=== PATIENT | male | born 1955 | race Caucasian/White ===

== ENCOUNTER 2017-11-09 09:23 | Inpatient (IN) | payer OTHER ==
[2017-11-09 11:03] VITALS: BMI 23.4
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
[2017-11-09] MEDS ORDERED: P-EPHED 60MG/TRIPROLIDI 2.5MG TABLET PO PRN (11:32)
[2017-11-09] MEDS ORDERED: MAG HYDROX/AL HYDROX/SIMETH 30 ML UNIT-DOSE CUP PO PRN (11:32)
[2017-11-09] MEDS ORDERED: chlordiazePOXIDE HCL 25 MG CAPSULE PO PRN (11:32)
[2017-11-09] MEDS ORDERED: MAGNESIUM CITRATE 300 ML BOTTLE PO PRN (11:32)
[2017-11-09] MEDS ORDERED: LOPERAMIDE HCL 2 MG CAPSULE PO PRN (11:32)
[2017-11-09] MEDS ORDERED: MENTHOL/PHENOL 1 EACH UD MM PRN (11:32)
[2017-11-09] MEDS ORDERED: guaiFENesin/D-METHORPHAN HB 10 ML UNIT-DOSE CUPS PO PRN (11:32)
[2017-11-09] MEDS ORDERED: IBUPROFEN 400 MG TABLET (FP) PO PRN (11:32)
[2017-11-09] MEDS ORDERED: MAGNESIUM HYDROX 2400MG/30ML ORAL SUSPENSION 30 ML CUP PO PRN (11:32)
[2017-11-09] MEDS ORDERED: ACETAMINOPHEN 325 MG TABLET (FP) PO PRN (11:32)
[2017-11-09] MEDS ORDERED: cloNIDine HCL 0.1 MG TABLET PO ONE ×3 (11:36→23:47)
[2017-11-09] MEDS ORDERED: chlordiazePOXIDE HCL 25 MG CAPSULE PO ONE (12:09)
[2017-11-09] MEDS ORDERED: METHADONE HCL 10 MG TABLET (FOR DETOX USE ONLY) PO ONE ×2 (12:09→23:00)
[2017-11-09] MEDS: NICOTINE 21 MG/24 HOURS TOPICAL PATCH TD SCH (12:46)
[2017-11-09] MEDS: TRIAMTERENE AND HCTZ - 37.5 MG/25 MG CAPSULE PO SCH (13:44)
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
[2017-11-09] MEDS: hydrOXYzine PAMOATE 25 MG CAPSULE (FP) PO PRN ×2 (17:21→22:20)
[2017-11-09] MEDS: chlordiazePOXIDE HCL 25 MG CAPSULE PO SCH ×2 (17:21→22:18)
--- NOTE | 2017-11-09 17:41 | EKG ---
Test Reason : Blood Pressure : / mmHG Vent. Rate : 078 BPM Atrial Rate : 078 BPM P-R Int : 252 ms QRS Dur : 086 ms QT Int : 392 ms P-R-T Axes : 075 -16 059 degrees QTc Int : 446 ms SINUS RHYTHM WITH 1ST DEGREE A-V BLOCK OTHERWISE NORMAL ECG NO PREVIOUS ECGS AVAILABLE Confirmed by ELISA JENSEN MD ([id number]) on 11/09/2017 5:41:11 PM Referred By: Confirmed By:ELISA JENSEN MD
[2017-11-09 18:03] LABS: URINE APPEARANCE CLEAR; URINE BILIRUBIN NEGATIVE (NEGATIVE); URINE BLOOD NEGATIVE (NEGATIVE); URINE COLOR AMBER; URINE GLUCOSE (UA) NEGATIVE (NEGATIVE); URINE KETONE NEGATIVE (NEGATIVE); URINE LEUK ESTERASE NEGATIVE (NEGATIVE); URINE NITRITE NEGATIVE (NEGATIVE); URINE PROTEIN NEGATIVE (NEGATIVE); URINE UROBILINOGEN 4.0 E.U/dl mg/dL (0.2-1.0)
[2017-11-09] MEDS: cloNIDine HCL 0.1 MG TABLET PO SCH (21:13)
[2017-11-09] MEDS: THIAMINE HCL 100 MG TABLET (FP) PO SCH (22:18)
[2017-11-09] MEDS: traZODone HCL 50 MG TABLET (FP) PO SCH (22:18)
[2017-11-10] MEDS: chlordiazePOXIDE HCL 25 MG CAPSULE PO SCH ×4 (05:21→22:04)
--- NOTE | 2017-11-10 09:06 | EKG ---
Test Reason : Blood Pressure : / mmHG Vent. Rate : 064 BPM Atrial Rate : 064 BPM P-R Int : 000 ms QRS Dur : 092 ms QT Int : 478 ms P-R-T Axes : 226 164 126 degrees QTc Int : 493 ms LIMB LEAD REVERSAL LATERAL INFARCT , AGE UNDETERMINED ABNORMAL ECG WHEN COMPARED WITH ECG OF 09-NOV-2017 13:25, ECTOPIC ATRIAL RHYTHM HAS REPLACED SINUS RHYTHM QUESTIONABLE CHANGE IN QRS AXIS Confirmed by Jose Mcdonnell ([id number]) on 11/10/2017 9:06:15 AM Referred By: Confirmed By:Jose Mcdonnell
[2017-11-10] MEDS ORDERED: METHADONE HCL 10 MG TABLET (FOR DETOX USE ONLY) PO SCH (10:00)
[2017-11-10] MEDS: PRENATAL VITAMINS W/ FOLIC ACID TABLET (FP) PO SCH (10:10)
[2017-11-10] MEDS: cloNIDine HCL 0.1 MG TABLET PO SCH ×2 (10:10→22:04)
[2017-11-10] MEDS: TRIAMTERENE AND HCTZ - 37.5 MG/25 MG CAPSULE PO SCH (10:10)
[2017-11-10] MEDS: NICOTINE 21 MG/24 HOURS TOPICAL PATCH TD SCH (10:11)
[2017-11-10] MEDS ORDERED: ONDANSETRON *ODT* 4 MG TABLET SL PRN (10:30)
[2017-11-10 10:32] LABS: HEMOGLOBIN 13.3 GM/dL (11.7-16.9); MCH 30.8 pg (25.7-33.7); MCHC 31.7 g/dl (32.0-35.9); MEAN CELL VOLUME 97.3 fl (80-96); MEAN PLT VOLUME 10.2 fl (7.5-11.1); PLATELET COUNT 156 K/MM3 (134-434); RBC 4.31 M/mm3 (4.00-5.60)
[2017-11-10 10:33] LABS: CHLORIDE 100 mmol/L (98-107); POTASSIUM 3.9 mmol/L (3.5-5.1); SODIUM 137 mmol/L (136-145)
--- NOTE | 2017-11-10 10:33 | PN ---
S CIWA - CIWA Score Nausea/Vomitin-Int. Nausea w/Dry Heave Muscle Tremors: 3 Anxiety: 4-Mod. Anxious/Guarded Agitation: 2 Paroxysmal Sweats: 1-Minimal Palms Moist Orientation: 0-Oriented Tacttile Disturbances: 3-Moderate Itch/Numb/Burn Auditory Disturbances: 0-None Visual Disturbances: 0-None Headache: 0-None Present CIWA-Ar Total Score: 17 BHS COWS - Scale Resting Pulse: 0= ID 80 or Below Sweatin= Chills/Flushing Restless Observation: 3= Extraneous Movement Pupil Size: 2= Moderately Dilated Bone or Joint Aches: 4=Acute Joint/Muscle Pain Runny Nose/ Eye Tearin= None GI Upset > 30mins: 0= None Tremor Observation of Outstretched Hands: 2= Slight Tremor Visible Yawning Observation: 1= 1-2x During Session Anxiety or Irritability: 1=Feels Anxious/Irritable Goose Flesh Skin: 0=Smooth Skin COWS Score: 14 S Progress Note (SOAP) Subjective: ANXIETY,CHILLS/SWEATS,NAUSEA TREMORS,FATIGUE, Objective: 11/10/17 10:32 Vital Signs Temperature 96.5 F L 11/10/17 09:15 Pulse Rate 66 11/10/17 09:15 Respiratory Rate 18 11/10/17 09:15 Blood Pressure 164/93 11/10/17 09:15 O2 Sat by Pulse Oximetry (%) Laboratory Last Values Urine Color Yasemin 11/09/17 16:00 Urine Appearance Clear 11/09/17 16:00 Urine pH 7.0 (5.0-8.0) D 11/09/17 16:00 Ur Specific [place] 1.025 (1.001-1.035) 11/09/17 16:00 Urine Protein Negative (NEGATIVE) 11/09/17 16:00 Urine Glucose (UA) Negative (NEGATIVE) 11/09/17 16:00 Urine Ketones Negative (NEGATIVE) 11/09/17 16:00 Urine Blood Negative (NEGATIVE) 11/09/17 16:00 Urine Nitrite Negative (NEGATIVE) 11/09/17 16:00 Urine Bilirubin Negative (NEGATIVE) 11/09/17 16:00 Urine Urobilinogen 4.0 e.u/dl mg/dL (0.2-1.0) 11/09/17 16:00 Ur Leukocyte Esterase Negative (NEGATIVE) 11/09/17 16:00 HIV 1&2 Antibody Screen Negative 11/09/17 12:00 HIV P24 Antigen Negative 11/09/17 12:00 OTHER LABS PENDING Assessment: 11/10/17 10:33 WITHDRAWAL SX Plan: CONTINUE DETOX
[2017-11-10] MEDS ORDERED: ALBUTEROL SO4 18 GM HFA INHALER IH PRN (10:43)
[2017-11-10 10:52] LABS: ALBUMIN 3.1 g/dl (3.4-5.0); ALK PHOS 188 U/L (45-117); ANION GAP 8 (8-16); BILIRUBIN,TOTAL 1.5 mg/dL (0.2-1.0); BLOOD UREA NITROGEN 15 mg/dL (7-18); CALCIUM 8.6 mg/dL (8.5-10.1); CO2 29 mmol/L (21-32); CREATININE 0.9 mg/dL (0.7-1.3); GLUCOSE,RANDOM 134 mg/dL (74-106); SGOT/AST 87 U/L (15-37); SGPT/ALT 25 U/L (12-78); TOT PROT 8.3 g/dl (6.4-8.2)
[2017-11-10] MEDS ORDERED: chlordiazePOXIDE HCL 25 MG CAPSULE PO ONE (14:30)
[2017-11-10] MEDS: THIAMINE HCL 100 MG TABLET (FP) PO SCH (22:04)
[2017-11-10] MEDS: traZODone HCL 50 MG TABLET (FP) PO SCH (22:04)
[2017-11-11] MEDS: chlordiazePOXIDE HCL 25 MG CAPSULE PO SCH ×2 (05:53→10:36)
[2017-11-11] MEDS: METHADONE HCL 5 MG TABLET (FOR DETOX USE ONLY) PO SCH (10:34)
[2017-11-11] MEDS: cloNIDine HCL 0.1 MG TABLET PO SCH ×2 (10:34→21:58)
[2017-11-11] MEDS: TRIAMTERENE AND HCTZ - 37.5 MG/25 MG CAPSULE PO SCH (10:34)
[2017-11-11] MEDS: PRENATAL VITAMINS W/ FOLIC ACID TABLET (FP) PO SCH (10:36)
[2017-11-11] MEDS: NICOTINE 21 MG/24 HOURS TOPICAL PATCH TD SCH (10:36)
--- NOTE | 2017-11-11 11:09 | PN ---
S CIWA - CIWA Score Nausea/Vomitin-No Nausea/No Vomiting Muscle Tremors: 4-Moderate,w/Arms Extend Anxiety: 4-Mod. Anxious/Guarded Agitation: 4-Moderately Restless Paroxysmal Sweats: 1-Minimal Palms Moist Orientation: 0-Oriented Tacttile Disturbances: 3-Moderate Itch/Numb/Burn Auditory Disturbances: 0-None Visual Disturbances: 0-None Headache: 0-None Present CIWA-Ar Total Score: 16 BHS COWS - Scale Resting Pulse: 0= [place] 80 or Below Sweatin= Chills/Flushing Restless Observation: 3= Extraneous Movement Pupil Size: 2= Moderately Dilated Bone or Joint Aches: 4=Acute Joint/Muscle Pain Runny Nose/ Eye Tearin= Nasal Congestion GI Upset > 30mins: 1= Stomach Cramp Tremor Observation of Outstretched Hands: 1= Tremor [place], Not Seen Yawning Observation: 2= >3x During Session Anxiety or Irritability: 2=Irritable/Anxious Goose Flesh Skin: 0=Smooth Skin COWS Score: 17 [facility] Progress Note (SOAP) Subjective: ANXIETY,TREMORS,SWEATS,MUSCLE ACHES/ LEG CRAMPS, FATIGUE Objective: 11/11/17 11:08 Vital Signs Temperature 97.2 F L 11/11/17 09:05 Pulse Rate 77 11/11/17 09:05 Respiratory Rate 18 11/11/17 09:05 Blood Pressure 132/83 11/11/17 09:05 O2 Sat by Pulse Oximetry (%) Laboratory Last Values WBC 5.0 K/mm3 (4.0-10.0) 11/10/17 05:50 RBC 4.31 M/mm3 (4.00-5.60) 11/10/17 05:50 Hgb 13.3 GM/dL (11.7-16.9) 11/10/17 05:50 Hct 42.0 % (35.4-49) 11/10/17 05:50 MCV 97.3 fl (80-96) H 11/10/17 05:50 MCH 30.8 pg (25.7-33.7) 11/10/17 05:50 MCHC 31.7 g/dl (32.0-35.9) L 11/10/17 05:50 RDW 14.0 % (11.9-15.9) 11/10/17 05:50 Plt Count 156 K/MM3 (134-434) D 11/10/17 05:50 MPV 10.2 fl (7.5-11.1) D 11/10/17 05:50 Sodium 137 mmol/L (136-145) 11/10/17 05:50 Potassium 3.9 mmol/L (3.5-5.1) 11/10/17 05:50 Chloride 100 mmol/L (98-107) 11/10/17 05:50 Carbon Dioxide 29 mmol/L (21-32) 11/10/17 05:50 Anion Gap 8 (8-16) 11/10/17 05:50 BUN 15 mg/dL (7-18) D 11/10/17 05:50 Creatinine 0.9 mg/dL (0.7-1.3) 11/10/17 05:50 Creat Clearance w eGFR > 60 (>60) 11/10/17 05:50 Random Glucose 134 mg/dL (74-106) H 11/10/17 05:50 Calcium 8.6 mg/dL (8.5-10.1) 11/10/17 05:50 Total Bilirubin 1.5 mg/dL (0.2-1.0) H D 11/10/17 05:50 AST 87 U/L (15-37) H 11/10/17 05:50 ALT 25 U/L (12-78) 11/10/17 05:50 Alkaline Phosphatase 188 U/L (45-117) H D 11/10/17 05:50 Total Protein 8.3 g/dl (6.4-8.2) H 11/10/17 05:50 Albumin 3.1 g/dl (3.4-5.0) L D 11/10/17 05:50 Urine Color Yasemin 11/09/17 16:00 Urine Appearance Clear 11/09/17 16:00 Urine pH 7.0 (5.0-8.0) D 11/09/17 16:00 Ur Specific [place] 1.025 (1.001-1.035) 11/09/17 16:00 Urine Protein Negative (NEGATIVE) 11/09/17 16:00 Urine Glucose (UA) Negative (NEGATIVE) 11/09/17 16:00 Urine Ketones Negative (NEGATIVE) 11/09/17 16:00 Urine Blood Negative (NEGATIVE) 11/09/17 16:00 Urine Nitrite Negative (NEGATIVE) 11/09/17 16:00 Urine Bilirubin Negative (NEGATIVE) 11/09/17 16:00 Urine Urobilinogen 4.0 e.u/dl mg/dL (0.2-1.0) 11/09/17 16:00 Ur Leukocyte Esterase Negative (NEGATIVE) 11/09/17 16:00 RPR Titer Nonreactive (NONREACTIVE) 11/10/17 05:50 HIV 1&2 Antibody Screen Negative 11/09/17 12:00 HIV P24 Antigen Negative 11/09/17 12:00 Assessment: 11/11/17 11:08 WITHDRAWAL SX Plan: CONTINUE DETOX FLEXERIL 10 MG PO TID PRN
[2017-11-11] MEDS: chlordiazePOXIDE 5 MG CAPSULE PO SCH ×2 (17:34→22:43)
[2017-11-11] MEDS: THIAMINE HCL 100 MG TABLET (FP) PO SCH (21:58)
[2017-11-11] MEDS: traZODone HCL 50 MG TABLET (FP) PO SCH (22:43)
[2017-11-12] MEDS: chlordiazePOXIDE 5 MG CAPSULE PO SCH ×2 (05:14→11:28)
[2017-11-12] MEDS: cloNIDine HCL 0.1 MG TABLET PO SCH (10:43)
[2017-11-12] MEDS: PRENATAL VITAMINS W/ FOLIC ACID TABLET (FP) PO SCH (10:43)
[2017-11-12] MEDS: TRIAMTERENE AND HCTZ - 37.5 MG/25 MG CAPSULE PO SCH (10:43)
[2017-11-12] MEDS: METHADONE HCL 5 MG TABLET (FOR DETOX USE ONLY) PO SCH (10:43)
[2017-11-12] MEDS: NICOTINE 21 MG/24 HOURS TOPICAL PATCH TD SCH (10:44)
[2017-11-12] MEDS ORDERED: cloNIDine HCL 0.1 MG TABLET PO PRN (11:32)
--- NOTE | 2017-11-12 11:32 | PN ---
S Progress Note (SOAP) Subjective: PT APPEARED LETHARGIC WITH UNSTEADY GAIT. SLIGHT ANXIETY. DECREASED APPETITE. Objective: 11/12/17 11:30 Vital Signs Temperature 97.2 F L 11/12/17 09:27 Pulse Rate 78 11/12/17 09:27 Respiratory Rate 20 11/12/17 09:27 Blood Pressure 142/91 11/12/17 09:27 O2 Sat by Pulse Oximetry (%) Laboratory Last Values WBC 5.0 K/mm3 (4.0-10.0) 11/10/17 05:50 RBC 4.31 M/mm3 (4.00-5.60) 11/10/17 05:50 Hgb 13.3 GM/dL (11.7-16.9) 11/10/17 05:50 Hct 42.0 % (35.4-49) 11/10/17 05:50 MCV 97.3 fl (80-96) H 11/10/17 05:50 MCH 30.8 pg (25.7-33.7) 11/10/17 05:50 MCHC 31.7 g/dl (32.0-35.9) L 11/10/17 05:50 RDW 14.0 % (11.9-15.9) 11/10/17 05:50 Plt Count 156 K/MM3 (134-434) D 11/10/17 05:50 MPV 10.2 fl (7.5-11.1) D 11/10/17 05:50 Sodium 137 mmol/L (136-145) 11/10/17 05:50 Potassium 3.9 mmol/L (3.5-5.1) 11/10/17 05:50 Chloride 100 mmol/L (98-107) 11/10/17 05:50 Carbon Dioxide 29 mmol/L (21-32) 11/10/17 05:50 Anion Gap 8 (8-16) 11/10/17 05:50 BUN 15 mg/dL (7-18) D 11/10/17 05:50 Creatinine 0.9 mg/dL (0.7-1.3) 11/10/17 05:50 Creat Clearance w eGFR > 60 (>60) 11/10/17 05:50 POC Glucometer 112 UNITS (80-120) 11/12/17 06:12 Random Glucose 134 mg/dL (74-106) H 11/10/17 05:50 Calcium 8.6 mg/dL (8.5-10.1) 11/10/17 05:50 Total Bilirubin 1.5 mg/dL (0.2-1.0) H D 11/10/17 05:50 AST 87 U/L (15-37) H 11/10/17 05:50 ALT 25 U/L (12-78) 11/10/17 05:50 Alkaline Phosphatase 188 U/L (45-117) H D 11/10/17 05:50 Total Protein 8.3 g/dl (6.4-8.2) H 11/10/17 05:50 Albumin 3.1 g/dl (3.4-5.0) L D 11/10/17 05:50 Urine Color Yasemin 11/09/17 16:00 Urine Appearance Clear 11/09/17 16:00 Urine pH 7.0 (5.0-8.0) D 11/09/17 16:00 Ur Specific [place] 1.025 (1.001-1.035) 11/09/17 16:00 Urine Protein Negative (NEGATIVE) 11/09/17 16:00 Urine Glucose (UA) Negative (NEGATIVE) 11/09/17 16:00 Urine Ketones Negative (NEGATIVE) 11/09/17 16:00 Urine Blood Negative (NEGATIVE) 11/09/17 16:00 Urine Nitrite Negative (NEGATIVE) 11/09/17 16:00 Urine Bilirubin Negative (NEGATIVE) 11/09/17 16:00 Urine Urobilinogen 4.0 e.u/dl mg/dL (0.2-1.0) 11/09/17 16:00 Ur Leukocyte Esterase Negative (NEGATIVE) 11/09/17 16:00 RPR Titer Nonreactive (NONREACTIVE) 11/10/17 05:50 HIV 1&2 Antibody Screen Negative 11/09/17 12:00 HIV P24 Antigen Negative 11/09/17 12:00 Assessment: 11/12/17 11:30 WITHDRAWAL SX Plan: CONTINUE DETOX ASSIST PT NEEDED INCREASE PO FLUIDS MAINTAIN SAFETY
[2017-11-12] MEDS: chlordiazePOXIDE HCL 10 MG CAPSULE PO SCH ×2 (18:23→23:17)
[2017-11-12] MEDS: traZODone HCL 50 MG TABLET (FP) PO SCH (23:17)
[2017-11-12] MEDS: THIAMINE HCL 100 MG TABLET (FP) PO SCH (23:18)
[2017-11-13] MEDS: chlordiazePOXIDE HCL 10 MG CAPSULE PO SCH (06:30)
[2017-11-13] MEDS ORDERED: METHADONE HCL 10 MG TABLET (FOR DETOX USE ONLY) PO SCH (10:00)
--- NOTE | 2017-11-13 11:03 | PN ---
BHS Progress Note (SOAP) Subjective: PT APPEARS LETHARGIC, SLEEPING IN BED BUT AROUSABLE. Objective: 11/13/17 11:06 Vital Signs Temperature 97.9 F 11/13/17 10:07 Pulse Rate 63 11/13/17 10:07 Respiratory Rate 18 11/13/17 10:07 Blood Pressure 129/76 11/13/17 10:07 O2 Sat by Pulse Oximetry (%) Laboratory Last Values WBC 5.0 K/mm3 (4.0-10.0) 11/10/17 05:50 RBC 4.31 M/mm3 (4.00-5.60) 11/10/17 05:50 Hgb 13.3 GM/dL (11.7-16.9) 11/10/17 05:50 Hct 42.0 % (35.4-49) 11/10/17 05:50 MCV 97.3 fl (80-96) H 11/10/17 05:50 MCH 30.8 pg (25.7-33.7) 11/10/17 05:50 MCHC 31.7 g/dl (32.0-35.9) L 11/10/17 05:50 RDW 14.0 % (11.9-15.9) 11/10/17 05:50 Plt Count 156 K/MM3 (134-434) D 11/10/17 05:50 MPV 10.2 fl (7.5-11.1) D 11/10/17 05:50 Sodium 137 mmol/L (136-145) 11/10/17 05:50 Potassium 3.9 mmol/L (3.5-5.1) 11/10/17 05:50 Chloride 100 mmol/L (98-107) 11/10/17 05:50 Carbon Dioxide 29 mmol/L (21-32) 11/10/17 05:50 Anion Gap 8 (8-16) 11/10/17 05:50 BUN 15 mg/dL (7-18) D 11/10/17 05:50 Creatinine 0.9 mg/dL (0.7-1.3) 11/10/17 05:50 Creat Clearance w eGFR > 60 (>60) 11/10/17 05:50 POC Glucometer 75 UNITS (80-120) 11/13/17 06:55 Random Glucose 134 mg/dL (74-106) H 11/10/17 05:50 Calcium 8.6 mg/dL (8.5-10.1) 11/10/17 05:50 Total Bilirubin 1.5 mg/dL (0.2-1.0) H D 11/10/17 05:50 AST 87 U/L (15-37) H 11/10/17 05:50 ALT 25 U/L (12-78) 11/10/17 05:50 Alkaline Phosphatase 188 U/L (45-117) H D 11/10/17 05:50 Total Protein 8.3 g/dl (6.4-8.2) H 11/10/17 05:50 Albumin 3.1 g/dl (3.4-5.0) L D 11/10/17 05:50 Urine Color Yasemin 11/09/17 16:00 Urine Appearance Clear 11/09/17 16:00 Urine pH 7.0 (5.0-8.0) D 11/09/17 16:00 Ur Specific [place] 1.025 (1.001-1.035) 11/09/17 16:00 Urine Protein Negative (NEGATIVE) 11/09/17 16:00 Urine Glucose (UA) Negative (NEGATIVE) 11/09/17 16:00 Urine Ketones Negative (NEGATIVE) 11/09/17 16:00 Urine Blood Negative (NEGATIVE) 11/09/17 16:00 Urine Nitrite Negative (NEGATIVE) 11/09/17 16:00 Urine Bilirubin Negative (NEGATIVE) 11/09/17 16:00 Urine Urobilinogen 4.0 e.u/dl mg/dL (0.2-1.0) 11/09/17 16:00 Ur Leukocyte Esterase Negative (NEGATIVE) 11/09/17 16:00 RPR Titer Nonreactive (NONREACTIVE) 11/10/17 05:50 HIV 1&2 Antibody Screen Negative 11/09/17 12:00 HIV P24 Antigen Negative 11/09/17 12:00 Assessment: 11/13/17 11:06 WITHDRAWAL SX Plan: CONTINUE DETOX HOLD METHADONE 10 MG D/C LIBRIUM INCREASE PO FLUIDS. AMMONIA LEVEL NOW PSYCH F/U RE:TRAZODONE HS
[2017-11-13] MEDS: TRIAMTERENE AND HCTZ - 37.5 MG/25 MG CAPSULE PO SCH (11:21)
[2017-11-13] MEDS: amLODIPine BESYLATE 10 MG TABLET (FP) PO SCH (11:22)
[2017-11-13] MEDS: NICOTINE 21 MG/24 HOURS TOPICAL PATCH TD SCH (11:22)
[2017-11-13] MEDS: PRENATAL VITAMINS W/ FOLIC ACID TABLET (FP) PO SCH (11:22)
--- NOTE | 2017-11-13 17:38 | PN ---
Psychiatric Progress Note Vital Signs: Vital Signs Period Temp Pulse Resp BP Sys/Soler Pulse Ox Last 24 Hr 96.5 F-97.9 F 62-72 16-18 114-151/70-87 Date of Session: 11/13/17 Chief Complaint:: " I feel sleepy." HPI: Day 5 of detoxification treatment for alcohol and opioid dependence.Patient is sedated,slow and bedridden. ROS: Drowzy,slow,withdrawn and unsteady.In bed all day long. Current Medications: Active Medications Generic Name Dose Route Start Last Admin Trade Name Freq PRN Reason Stop Dose Admin Acetaminophen 650 mg 11/09/17 11:32 Tylenol - PO Q4H PRN FEVER Al Hydroxide/Mg Hydroxide 30 ml 11/09/17 11:32 Mylanta Oral Suspension - PO Q6H PRN DYSPEPSIA Albuterol Sulfate 2 puff 11/10/17 10:43 Ventolin Hfa Inhaler - IH Q4H PRN SHORT OF BREATH/WHEEZING Amlodipine Besylate 10 mg 11/13/17 10:00 11/13/17 11:22 Norvasc - PO 10 mg DAILY MONTSE Administration Eucalyptus/Menthol/Phenol/Sorbitol 1 each 11/09/17 11:32 Cepastat Lozenge - MM Q4H PRN SORE THROAT Guaifenesin 10 ml 11/09/17 11:32 Robitussin Dm - PO Q6H PRN COUGH Hydroxyzine Pamoate 25 mg 11/09/17 11:32 11/09/17 22:20 Vistaril - PO 25 mg Q4H PRN Administration AGITATION Ibuprofen 400 mg 11/09/17 11:32 11/11/17 21:58 Motrin - PO 400 mg Q6H PRN Administration PAIN LEVEL 4-6 Loperamide HCl 4 mg 11/09/17 11:32 Imodium - PO Q6H PRN DIARRHEA Magnesium Citrate 300 ml 11/09/17 11:32 Citroma - PO Q48H PRN CONSTIPATION Magnesium Hydroxide 30 ml 11/09/17 11:32 Milk Of Magnesia - PO DAILY PRN CONSTIPATION Methadone HCl 5 mg 11/14/17 06:00 Dolophine - PO 11/14/17 06:01 DAILY@0600 MONTSE Nicotine 21 mg 11/09/17 12:15 11/13/17 11:22 Nicoderm Patch - TD Not Given DAILY MONTSE Ondansetron HCl 4 mg 11/10/17 10:30 Zofran Odt - SL Q6H PRN NAUSEA AND/OR VOMITING Multivit/Folic Acid/Iron 1 tab 11/10/17 10:00 11/13/17 11:22 Vitamins (Sjr) - PO 1 tab DAILY MONTSE Administration Pseudoephedrine/Triprolidine 1 combo 11/09/17 11:32 Actifed - PO TID PRN NASAL CONGESTION Thiamine HCl 100 mg 11/09/17 22:00 11/12/17 23:18 Vitamin B1 - PO 100 mg HS MONTSE Administration Triamterene/HCTZ 1 cap 11/09/17 12:11 11/13/17 11:21 Dyazide 25/37.5mg PO 1 cap DAILY MONTSE Administration Medication(s) Change(s): Trazodone 50 mg/hs is discontinued.Refer to medical FINANCE ADVISOR' s note for additional details. Current Side Effect: Yes (sedation.) Lab tests ordered: Yes (ammonia level) Lab tests reviewed: Yes (elevated ammonia level = 161) Provider note:: Asked to evaluate this patient for alteration of mental status.Case presented by medical FINANCE ADVISOR Gerry.Chart reviewed.Multidisciplinary progress notes are appreciated.Met with patient at bedside.Mr Mendoza is awake at time of this examination.Able to maintain conversation.Answers simple questions.Speech is slow,hesitant but coherent and goal-directed.The patient is oriented X 3 spheres.He reports feeling weak, drowzy and unsteady.Able,however,to get out of bed unassisted and walk to the bathroom.He is also observed,by this video games storywriter,eating his diner independently.Capable of executing simple tasks on command.Aware of personal hygiene as evidenced by wearing clean hospital attire.Behaves appropriately with staff.Patient remains withdrawn and beridden.No complaint of pain, headaches or muscular rigidity.No problem with urination or bowel movements.Patient denies hallucinations.No delusions elicited.Aware of his surroundings.Mr Mendoza denies falls.Patient is placed under falls precautions + close observation (frequent rounds).Medical follow up (hyperammonemia).Stable vitals at this time : BP = 104/75 P = 73 R = 20 T = 96.2 .Discussed with JANEL Rodrigez.Follow up by medical attending,Dr Blanco : pending.See nurse's notes. Total face to face time:: 35 Mental Status Exam - Mental Status Exam Alert and Oriented to: Time, Place, Person Cognitive Function: Grossly Intact Patient Appearance: Well Groomed Mood: Withdrawn Affect: Constricted Patient Behavior: Sedated (markedly sedated) Speech Pattern: Delayed, Slurred (slow but coherent and relevant) Voice Loudness: Moderately Soft/Quiet Thought Process: Goal Oriented Thought Disorder: Not Present Hallucinations: Denies Suicidal Ideation: Denies Homicidal Ideation: Denies Insight/Judgement: Fair Sleep: Well (sleepiness) Appetite: Good (as observed by this video games storywriter present at bedside while patient is eating diner) Gait/Station: Other (slow and unsteady gait) Psychiatric Treatment Plan - Problem List (1) Sedated due to medication Current Visit: Yes Comment: Suspected.Detoxification protocol placed on hold.Trazodone discontinued. (2) Alcohol dependence with uncomplicated withdrawal Current Visit: Yes (3) Opioid dependence with withdrawal Current Visit: Yes (4) Nicotine dependence Current Visit: Yes Qualifiers: Nicotine product type: cigarettes Substance use status: uncomplicated Qualified Code(s): F17.210 - Nicotine dependence, cigarettes, uncomplicated (5) Substance induced mood disorder Current Visit: Yes (6) Insomnia Current Visit: Yes
[2017-11-13] MEDS ORDERED: LACTULOSE 20 GM/30 ML UDC (FOR ORAL USE ONLY) PO PRN (19:17)
[2017-11-13] MEDS: THIAMINE HCL 100 MG TABLET (FP) PO SCH (22:46)
[2017-11-13] MEDS: LACTULOSE 20 GM/30 ML UDC (FOR ORAL USE ONLY) PO SCH (22:46)
[2017-11-14] MEDS ORDERED: METHADONE HCL 5 MG TABLET (FOR DETOX USE ONLY) PO SCH (06:00)
[2017-11-14] MEDS: amLODIPine BESYLATE 10 MG TABLET (FP) PO SCH (10:22)
[2017-11-14] MEDS: TRIAMTERENE AND HCTZ - 37.5 MG/25 MG CAPSULE PO SCH (10:22)
[2017-11-14] MEDS: PRENATAL VITAMINS W/ FOLIC ACID TABLET (FP) PO SCH (10:22)
[2017-11-14] MEDS: NICOTINE 21 MG/24 HOURS TOPICAL PATCH TD SCH (10:22)
[2017-11-14] MEDS: LACTULOSE 20 GM/30 ML UDC (FOR ORAL USE ONLY) PO SCH ×2 (11:24→22:41)
--- NOTE | 2017-11-14 17:11 | PN ---
[facility] Progress Note (SOAP) Subjective: Drowsy, dizzy, sweating Objective: 11/14/17 17:09 Last Vital Signs Temp Pulse Resp BP Pulse Ox 96.1 F L 79 18 108/71 11/14/17 14:14 11/14/17 14:14 11/14/17 14:14 11/14/17 14:14 Laboratory Tests 11/09/17 11/09/17 11/10/17 12:00 16:00 05:50 WBC 5.0 RBC 4.31 Hgb 13.3 Hct 42.0 MCV 97.3 H MCH 30.8 MCHC 31.7 L RDW 14.0 Plt Count 156 D MPV 10.2 D Sodium Potassium Chloride Carbon Dioxide Anion Gap BUN Creatinine Creat Clearance w eGFR POC Glucometer Random Glucose Calcium Total Bilirubin AST ALT Alkaline Phosphatase Ammonia Total Protein Albumin Urine Color Yasemin Urine Appearance Clear Urine pH 7.0 D Ur Specific [place] 1.025 Urine Protein Negative Urine Glucose (UA) Negative Urine Ketones Negative Urine Blood Negative Urine Nitrite Negative Urine Bilirubin Negative Urine Urobilinogen 4.0 e.u/dl Ur Leukocyte Esterase Negative RPR Titer HIV 1&2 Antibody Screen Negative HIV P24 Antigen Negative 11/10/17 11/10/17 11/12/17 05:50 05:50 06:12 WBC RBC Hgb Hct MCV MCH MCHC RDW Plt Count MPV Sodium 137 Potassium 3.9 Chloride 100 Carbon Dioxide 29 Anion Gap 8 BUN 15 D Creatinine 0.9 Creat Clearance w eGFR > 60 POC Glucometer 112 Random Glucose 134 H Calcium 8.6 Total Bilirubin 1.5 H D AST 87 H ALT 25 Alkaline Phosphatase 188 H D Ammonia Total Protein 8.3 H Albumin 3.1 L D Urine Color Urine Appearance Urine pH Ur Specific [place] Urine Protein Urine Glucose (UA) Urine Ketones Urine Blood Urine Nitrite Urine Bilirubin Urine Urobilinogen Ur Leukocyte Esterase RPR Titer Nonreactive HIV 1&2 Antibody Screen HIV P24 Antigen 11/12/17 11/13/17 11/13/17 16:37 06:55 11:50 WBC RBC Hgb Hct MCV MCH MCHC RDW Plt Count MPV Sodium Potassium Chloride Carbon Dioxide Anion Gap BUN Creatinine Creat Clearance w eGFR POC Glucometer 97 75 Random Glucose Calcium Total Bilirubin AST ALT Alkaline Phosphatase Ammonia 161 H Total Protein Albumin Urine Color Urine Appearance Urine pH Ur Specific [place] Urine Protein Urine Glucose (UA) Urine Ketones Urine Blood Urine Nitrite Urine Bilirubin Urine Urobilinogen Ur Leukocyte Esterase RPR Titer HIV 1&2 Antibody Screen HIV P24 Antigen 11/14/17 05:54 WBC RBC Hgb Hct MCV MCH MCHC RDW Plt Count MPV Sodium Potassium Chloride Carbon Dioxide Anion Gap BUN Creatinine Creat Clearance w eGFR POC Glucometer 92 Random Glucose Calcium Total Bilirubin AST ALT Alkaline Phosphatase Ammonia Total Protein Albumin Urine Color Urine Appearance Urine pH Ur Specific [place] Urine Protein Urine Glucose (UA) Urine Ketones Urine Blood Urine Nitrite Urine Bilirubin Urine Urobilinogen Ur Leukocyte Esterase RPR Titer HIV 1&2 Antibody Screen HIV P24 Antigen Labs noted Assessment: 11/14/17 17:10 Withdrawal symptoms Plan: Continue detox
--- NOTE | 2017-11-14 20:17 | PN ---
[facility] Progress Note Note: Psychiatry Attending on-call's note : Patient examined at bedside. Two nurses in attendance. Mr Mendoza is slowly improving. Evidenced by increased alertness,clearer and goal-directed speech, ability to follow commands,maintain eye contact,smile appropriately, attend to logical/coherent conversation,answer questions and relate to his immediate environment.Oriented to 3 spheres. Executes out of bed maneuvers.Independently.Verbalizes simple needs. Keeps acceptable level of personal hygiene (takes showers). Steadier gait.Patient eats well.No acting out behavior.Cooperative with staff. Medical coverage : on going.Hyperammonemia.Currently on lactulose BID. Discussed with nurses on duty. Patient is making progress.Favorable clinical course. Will maintain close observation/frequent rounds for safety.
[2017-11-14] MEDS: THIAMINE HCL 100 MG TABLET (FP) PO SCH (22:41)
[2017-11-15] MEDS: amLODIPine BESYLATE 10 MG TABLET (FP) PO SCH (10:29)
[2017-11-15] MEDS: PRENATAL VITAMINS W/ FOLIC ACID TABLET (FP) PO SCH (10:29)
[2017-11-15] MEDS: TRIAMTERENE AND HCTZ - 37.5 MG/25 MG CAPSULE PO SCH (10:29)
[2017-11-15] MEDS: NICOTINE 21 MG/24 HOURS TOPICAL PATCH TD SCH (10:30)
[2017-11-15] MEDS: LACTULOSE 20 GM/30 ML UDC (FOR ORAL USE ONLY) PO SCH ×2 (10:31→22:27)
--- NOTE | 2017-11-15 13:57 | PN ---
[facility] Progress Note (SOAP) Subjective: weak shakes Objective: 11/15/17 13:55 Slow speaking, able to make needs known Vital Signs Temperature 96.6 F L 11/15/17 09:29 Pulse Rate 76 11/15/17 09:29 Respiratory Rate 18 11/15/17 09:29 Blood Pressure 118/77 11/15/17 09:29 O2 Sat by Pulse Oximetry (%) Assessment: 11/15/17 13:56 withdrawal sx High ammonia levels Plan: d/c for tomorrow Repeat blood chemistry continue detox
[2017-11-15] MEDS: THIAMINE HCL 100 MG TABLET (FP) PO SCH (22:27)
[2017-11-15] MEDS: hydrOXYzine PAMOATE 25 MG CAPSULE (FP) PO PRN (22:30)
[2017-11-16 10:01] VITALS: BP 133/82; PULSE 78; TEMP 96.5
[2017-11-16 10:45] LABS: ANION GAP 8 (8-16); BLOOD UREA NITROGEN 24 mg/dL (7-18); CALCIUM 7.9 mg/dL (8.5-10.1); CHLORIDE 98 mmol/L (98-107); CO2 28 mmol/L (21-32); GLUCOSE,RANDOM 73 mg/dL (74-106); POTASSIUM 4.2 mmol/L (3.5-5.1); SODIUM 134 mmol/L (136-145)
[2017-11-16 10:47] LABS: CREATININE 0.9 mg/dL (0.7-1.3)
[2017-11-16] MEDS: amLODIPine BESYLATE 10 MG TABLET (FP) PO SCH (11:04)
[2017-11-16] MEDS: NICOTINE 21 MG/24 HOURS TOPICAL PATCH TD SCH (11:04)
[2017-11-16] MEDS: PRENATAL VITAMINS W/ FOLIC ACID TABLET (FP) PO SCH (11:04)
[2017-11-16] MEDS: LACTULOSE 20 GM/30 ML UDC (FOR ORAL USE ONLY) PO SCH (11:04)
[2017-11-16] MEDS: TRIAMTERENE AND HCTZ - 37.5 MG/25 MG CAPSULE PO SCH (11:04)
[2017-11-16] MEDS ORDERED: LACTULOSE 20 GM/30 ML UDC (FOR ORAL USE ONLY) PO PRN ×2 (13:32→15:47)
--- NOTE | 2017-11-16 13:52 | DS ---
[facility] Detox Discharge Summary Admission Date: 11/09/17 Discharge Date: 11/16/17 - History Additional Comments: Pt A & O x 3, awake and ambulating on unit in no distress Pt for rehab Pertinent Past History: HTN GERD Cirrhosis - Physical Exam Results Vital Signs: Vital Signs Temperature 96.5 F L 11/16/17 10:00 Pulse Rate 78 11/16/17 10:00 Respiratory Rate 18 11/16/17 10:00 Blood Pressure 133/82 11/16/17 10:00 O2 Sat by Pulse Oximetry (%) Pertinent Admission Physical Exam Findings: withdrawal sx Hyperammonia - Treatment Hospital Course: Detox Protocol Followed, Detoxed Safely, Responded well, Discharged Condition Good, Rehab Referral Accepted Patient has Accepted a Rehab Referral to: [facility] Rehab - Medication Discharge Medications: Ambulatory Orders Unobtainable [Unobtainable] 11/09/17 - Diagnosis (1) Alcohol dependence with uncomplicated withdrawal Current Visit: Yes Status: Acute (2) Opioid dependence with withdrawal Current Visit: Yes Status: Acute (3) Cirrhosis Current Visit: Yes Status: Chronic Qualifiers: Hepatic cirrhosis type: alcoholic cirrhosis (4) GERD (gastroesophageal reflux disease) Current Visit: Yes Status: Chronic (5) HTN (hypertension) Current Visit: Yes Status: Chronic Qualifiers: Hypertension type: essential hypertension Qualified Code(s): I10 - Essential (primary) hypertension (6) Nicotine dependence Current Visit: Yes Status: Chronic Qualifiers: Nicotine product type: cigarettes Substance use status: uncomplicated Qualified Code(s): F17.210 - Nicotine dependence, cigarettes, uncomplicated - AMA Did Patient Leave Against Medical Advice: Yes
[2017-11-16] MEDS ORDERED: hydrOXYzine PAMOATE 50 MG CAPSULE (FP) PO PRN (15:41)
[2017-11-16] MEDS ORDERED: guaiFENesin/D-METHORPHAN HB 10 ML UNIT-DOSE CUPS PO PRN (15:41)
[2017-11-16] MEDS ORDERED: MAGNESIUM HYDROX 2400MG/30ML ORAL SUSPENSION 30 ML CUP PO PRN (15:41)
[2017-11-16] MEDS ORDERED: IBUPROFEN 400 MG TABLET (FP) PO PRN (15:41)
[2017-11-16] MEDS ORDERED: P-EPHED 60MG/TRIPROLIDI 2.5MG TABLET PO PRN (15:41)
[2017-11-16] MEDS ORDERED: MAG HYDROX/AL HYDROX/SIMETH 30 ML UNIT-DOSE CUP PO PRN (15:41)
[2017-11-16] MEDS ORDERED: ACETAMINOPHEN 325 MG TABLET (FP) PO PRN (15:41)
[2017-11-16] MEDS ORDERED: LOPERAMIDE HCL 2 MG CAPSULE PO PRN (15:41)
[2017-11-16] MEDS ORDERED: MAGNESIUM CITRATE 300 ML BOTTLE PO PRN (15:41)
[2017-11-16] MEDS ORDERED: NICOTINE POLACRILEX 2 MG GUM BUC PRN (15:41)
[2017-11-16] MEDS ORDERED: MENTHOL/PHENOL 1 EACH UD MM PRN (15:41)
[2017-11-16] MEDS ORDERED: THIAMINE HCL 100 MG TABLET (FP) PO SCH (22:00)
[2017-11-17] MEDS ORDERED: NICOTINE 21 MG/24 HOURS TOPICAL PATCH TD SCH (10:00)
[2017-11-17] MEDS ORDERED: amLODIPine BESYLATE 5 MG TABLET (FP) PO SCH (10:00)
[2017-11-17] MEDS ORDERED: PRENATAL VITAMINS W/ FOLIC ACID TABLET (FP) PO SCH (10:00)
== END 2017-11-16 14:54 | disposition other institution (70) | DRG 773 ==
LOC: YASAS 09:23 → Y3N 11:48
PROVIDERS: ADMIT Internal Medicine; ATTEND Internal Medicine
PROC: HZ2ZZZZ Detoxification Services for Substance Abuse Treatment (ICD-10-PCS; principal; 2017-11-09)
DX: F11.23 Opioid dependence with withdrawal (principal); F10.230 Alcohol dependence with withdrawal, uncomplicated; F17.210 Nicotine dependence, cigarettes, uncomplicated; F32.9 Major depressive disorder, single episode, unspecified; K70.30 Alcoholic cirrhosis of liver without ascites; K21.9 Gastro-esophageal reflux disease without esophagitis; I10 Essential (primary) hypertension; E72.20 Disorder of urea cycle metabolism, unspecified; G47.00 Insomnia, unspecified; J44.9 Chronic obstructive pulmonary disease, unspecified; R60.0 Localized edema; Z87.898 Personal history of other specified conditions; Z91.14 Patient's other noncompliance with medication regimen
CPT/HCPCS: 36415; 80048; 80053; 81003; 82140; 82962; 85027; 86593; 87389; 93005; 93010; J0735

== ENCOUNTER 2017-11-16 15:07 | Inpatient (IN) | payer OTHER ==
--- NOTE | 2017-11-16 15:55 | HP ---
[facility] Rehab Assess/Revision - Admission History Admitted to Rehab from: [facility] Date of Admission to Rehab: 11/16/17 - Vital signs Vital Signs: Vital Signs Period Temp Pulse Resp BP Sys/Soler Pulse Ox Last 24 Hr 97.9 F 72 16 145/89 - Findings Detox History & Physical reviewed: Yes Concur with findings: Yes Comments/Additional Findings: FOR REHAB PROTOCOL Inpatient Rehab Admission - Initial Determination Are CD services needed?: Yes Free of communicable disease: Yes Not in need of hospitalization: Yes - Rehab Admission Criteria Previous failed treatment: Yes Poor recovery environment: Yes Comorbidities: Yes Lacks judgement: No Patient is meeting Inpatient Rehab admission criteria:: Yes
[2017-11-16] MEDS ORDERED: P-EPHED 60MG/TRIPROLIDI 2.5MG TABLET PO PRN (15:57)
[2017-11-16] MEDS ORDERED: IBUPROFEN 400 MG TABLET (FP) PO PRN (15:57)
[2017-11-16] MEDS ORDERED: guaiFENesin/D-METHORPHAN HB 10 ML UNIT-DOSE CUPS PO PRN (15:57)
[2017-11-16] MEDS ORDERED: LOPERAMIDE HCL 2 MG CAPSULE PO PRN (15:57)
[2017-11-16] MEDS ORDERED: NICOTINE POLACRILEX 2 MG GUM BUC PRN (15:57)
[2017-11-16] MEDS ORDERED: MAGNESIUM HYDROX 2400MG/30ML ORAL SUSPENSION 30 ML CUP PO PRN (15:57)
[2017-11-16] MEDS ORDERED: ACETAMINOPHEN 325 MG TABLET (FP) PO PRN (15:57)
[2017-11-16] MEDS ORDERED: MAG HYDROX/AL HYDROX/SIMETH 30 ML UNIT-DOSE CUP PO PRN (15:57)
[2017-11-16] MEDS ORDERED: MAGNESIUM CITRATE 300 ML BOTTLE PO PRN (15:57)
[2017-11-16] MEDS ORDERED: MENTHOL/PHENOL 1 EACH UD MM PRN (15:57)
[2017-11-16] MEDS ORDERED: ALBUTEROL SO4 18 GM HFA INHALER IH PRN (16:14)
[2017-11-16] MEDS: NICOTINE 21 MG/24 HOURS TOPICAL PATCH TD SCH (20:17)
[2017-11-16] MEDS: LACTULOSE 20 GM/30 ML UDC (FOR ORAL USE ONLY) PO SCH (21:18)
[2017-11-16] MEDS: THIAMINE HCL 100 MG TABLET (FP) PO SCH (21:18)
[2017-11-16] MEDS: hydrOXYzine PAMOATE 50 MG CAPSULE (FP) PO PRN (21:19)
[2017-11-17] MEDS: LACTULOSE 20 GM/30 ML UDC (FOR ORAL USE ONLY) PO SCH ×3 (06:28→21:16)
[2017-11-17] MEDS: amLODIPine BESYLATE 10 MG TABLET (FP) PO SCH (09:50)
[2017-11-17] MEDS: PRENATAL VITAMINS W/ FOLIC ACID TABLET (FP) PO SCH (09:50)
[2017-11-17] MEDS: NICOTINE 21 MG/24 HOURS TOPICAL PATCH TD SCH (09:50)
[2017-11-17] MEDS ORDERED: AMMONIUM LACTATE 12% LOTION 225 GM BOTTLE TP PRN (10:05)
[2017-11-17] MEDS ORDERED: COLLOIDAL OATMEAL 1 BAR EACH TP PRN (10:05)
--- NOTE | 2017-11-17 10:10 | PN ---
S Progress Note (SOAP) Subjective: C/O LEFT SHOULDER PAIN, OLD FROM ARTHRITIS AND INJURY , DRY SKIN, ITCHY H/O CIRRHOSIS Objective: 11/17/17 10:08 Vital Signs - 24 hr 11/16/17 11/17/17 11/17/17 15:47 00:30 03:30 Temperature 97.9 F Pulse Rate 72 Respiratory 16 18 18 Rate Blood Pressure 145/89 11/17/17 06:38 Temperature 97.2 F L Pulse Rate 82 Respiratory 18 Rate Blood Pressure 131/82 LABS STILL PENDING, REVIEWED FROM DETOX, FULL ROM A AND O X3 DRY SKIN NO RASH NOTED Assessment: 11/17/17 10:09 DRYSKIN DERMATITI - AVEENO SOP AND LACHYDRIN, SHOULDER PAIN - LIDODERM PATCH.
[2017-11-17 10:25] LABS: ALBUMIN 3.3 g/dl (3.4-5.0); BILIRUBIN,TOTAL 1.7 mg/dL (0.2-1.0); BLOOD UREA NITROGEN 21 mg/dL (7-18); CALCIUM 8.5 mg/dL (8.5-10.1); CO2 31 mmol/L (21-32); GLUCOSE,RANDOM 91 mg/dL (74-106); SGOT/AST 82 U/L (15-37); SGPT/ALT 40 U/L (12-78); TOT PROT 8.9 g/dl (6.4-8.2)
[2017-11-17 10:29] LABS: ALK PHOS 166 U/L (45-117); ANION GAP 6 (8-16); CHLORIDE 99 mmol/L (98-107); POTASSIUM 4.6 mmol/L (3.5-5.1); SODIUM 136 mmol/L (136-145)
--- NOTE | 2017-11-17 11:57 | HP ---
Psychiatrist Admission - Data Date of interview: 11/17/17 Identifying data: This is the first 5N inpatient rehabilitation admission for this 62 year old male father of one (45 y/o) currently homeless and unemployed. Medical History: Hypertension, Cirrhosis, GERD, smokes cigarettes 1/2 ppd. Psychiatric History: Patient denies history of psychiatric treatment, however reports he feels depressed and unable to sleep well at nights. Physical/Sexual Abuse/Trauma History: Denies history of sexual, physical and verbal abuse. Vital Signs: Vital Signs - 24 hr 11/16/17 11/17/17 11/17/17 15:47 00:30 03:30 Temperature 97.9 F Pulse Rate 72 Respiratory 16 18 18 Rate Blood Pressure 145/89 11/17/17 06:38 Temperature 97.2 F L Pulse Rate 82 Respiratory 18 Rate Blood Pressure 131/82 Allergies/Adverse Reactions: Allergies Allergy/AdvReac Type Severity Reaction Status Date / Time No Known Allergies Allergy Verified 11/09/17 11:03 Date of last physical exam: 11/09/17 Concur with the findings of this exam: Yes - Substance Abuse/Tx History Hx Alcohol Use: Yes (long Is ice tea 2 pints daily) Hx Substance Use: Yes Substance Use Type: Heroin (3-4 bags adily ) Hx Substance Use Treatment: Yes (OPD.) Mental Status Exam - Mental Status Exam Alert and Oriented to: Time, Place, Person Cognitive Function: Good Patient Appearance: Well Groomed Mood: Depressed, Sad, Anxious Patient Behavior: Appropriate, Cooperative Speech Pattern: Clear, Appropriate Voice Loudness: Normal Thought Process: Intact Thought Disorder: Not Present Hallucinations: Denies Suicidal Ideation: Denies Homicidal Ideation: Denies Insight/Judgement: Fair Sleep: Poorly, Difficulty falling asleep Appetite: Fair, Weight loss Muscle strength/Tone: Normal Gait/Station: Normal Psychiatric Findings - Problem List ([place] 1, 2,3) (1) Substance induced mood disorder Current Visit: No Status: Acute (2) Substance-induced anxiety disorder Current Visit: No Status: Acute (3) Substance-induced sleep disorder Current Visit: No Status: Acute (4) Cirrhosis Current Visit: No Status: Chronic (5) GERD (gastroesophageal reflux disease) Current Visit: No Status: Chronic (6) HTN (hypertension) Current Visit: No Status: Chronic Qualifiers: (7) Nicotine dependence Current Visit: No Status: Chronic - Initial Treatment Plan Initial Treatment Plan: will add Remeron 7.5 mg po hs,(side-effects/benefits discussed). monitor progress.
[2017-11-17] MEDS ORDERED: PNEUMOCOCCAL 23 VACCINE 0.5 ML VIAL IM ONE (12:00)
[2017-11-17] MEDS ORDERED: PNEUMOC 13-VAL CONJ-DIP CRM/PF 0.5 ML DISP.SYRIN IM ONE (12:00)
[2017-11-17] MEDS: LIDOCAINE 5% TOPICAL PATCH TP SCH (13:52)
[2017-11-17] MEDS: THIAMINE HCL 100 MG TABLET (FP) PO SCH (21:16)
[2017-11-17] MEDS: LIDOCAINE PATCH REMOVAL MC SCH (21:17)
[2017-11-17] MEDS ORDERED: MIRTAZAPINE 15 MG TABLET (FP) PO SCH (22:00)
[2017-11-18] MEDS: LACTULOSE 20 GM/30 ML UDC (FOR ORAL USE ONLY) PO SCH ×3 (05:57→21:17)
[2017-11-18] MEDS: PRENATAL VITAMINS W/ FOLIC ACID TABLET (FP) PO SCH (10:17)
[2017-11-18] MEDS: NICOTINE 21 MG/24 HOURS TOPICAL PATCH TD SCH (10:18)
[2017-11-18] MEDS: LIDOCAINE 5% TOPICAL PATCH TP SCH (10:18)
[2017-11-18] MEDS: amLODIPine BESYLATE 10 MG TABLET (FP) PO SCH (10:20)
--- NOTE | 2017-11-18 10:52 | PN ---
Psychiatric Progress Note Vital Signs: Vital Signs Period Temp Pulse Resp BP Sys/Soler Pulse Ox Last 24 Hr 98.2 F 82 18-82 145/79 Date of Session: 11/18/17 Chief Complaint:: "insomnia" HPI: Patient addressing alcohol, opioid, nicotine dependence comorbid substance induced anxiety abd sleep disorder. ROS: GERD and HTN medically managed. Current Medications: Active Medications Generic Name Dose Route Start Last Admin Trade Name Freq PRN Reason Stop Dose Admin Al Hydroxide/Mg Hydroxide 30 ml 11/16/17 15:57 Mylanta Oral Suspension - PO Q6H PRN DYSPEPSIA Albuterol Sulfate 2 puff 11/16/17 16:14 Ventolin Hfa Inhaler - IH Q4H PRN SHORT OF BREATH/WHEEZING Amlodipine Besylate 10 mg 11/17/17 10:00 11/18/17 10:20 Norvasc - PO 10 mg DAILY MONTSE Administration Colloidal Oatmeal 1 applic 11/17/17 10:05 11/17/17 21:19 Aveeno Soap - TP 1 applic DAILY PRN Administration HYGEINE Eucalyptus/Menthol/Phenol/Sorbitol 1 each 11/16/17 15:57 Cepastat Lozenge - MM Q4H PRN SORE THROAT Guaifenesin 10 ml 11/16/17 15:57 Robitussin Dm - PO Q6H PRN COUGH Hydroxyzine Pamoate 50 mg 11/16/17 15:57 11/16/17 21:19 Vistaril - PO 50 mg Q4H PRN Administration AGITATION Ibuprofen 400 mg 11/16/17 15:57 Motrin - PO Q6H PRN Pain Level 4-6 Lactic Acid 1 applic 11/17/17 10:05 Lac-Hydrin 12 TP BID PRN DRY SKIN Lactulose 20 gm 11/16/17 22:00 11/18/17 05:57 Cephulac (Oral Use) PO 20 gm TID MONTSE Administration Lidocaine 1 patch 11/17/17 10:15 11/18/17 10:18 Lidoderm Patch - TP 1 patch DAILY MONTSE Administration Loperamide HCl 4 mg 11/16/17 15:57 Imodium - PO Q6H PRN DIARRHEA Magnesium Citrate 300 ml 11/16/17 15:57 Citroma - PO Q48H PRN CONSTIPATION Magnesium Hydroxide 30 ml 11/16/17 15:57 Milk Of Magnesia - PO DAILY PRN CONSTIPATION Mirtazapine 15 mg 11/18/17 10:34 Remeron - PO HS MONTSE Miscellaneous 1 each 11/17/17 22:00 11/17/17 21:17 Lidoderm Patch Removal MC Not Given DAILY@2200 MONTSE Nicotine 21 mg 11/16/17 17:00 11/18/17 10:18 Nicoderm Patch - TD 21 mg DAILY MONTSE Administration Nicotine Polacrilex 2 mg 11/16/17 15:57 Nicorette Gum - BUC Q2H PRN NICOTINE REPLACEMENT RX Multivit/Folic Acid/Iron 1 tab 11/17/17 10:00 11/18/17 10:17 Vitamins (Sjr) - PO 1 tab DAILY MONTSE Administration Pseudoephedrine/Triprolidine 1 combo 11/16/17 15:57 Actifed - PO TID PRN NASAL CONGESTION Thiamine HCl 100 mg 11/16/17 22:00 11/17/17 21:16 Vitamin B1 - PO 100 mg HS MONTSE Administration Current Side Effect: No Lab tests ordered: No Lab tests reviewed: Yes Provider note:: Patient continues to c/o poor interrupted sleep, statess he slpet 2 hours and was uot the rest of tyhe nights, reviewed medications with the patient will increase Remeron 15 mg po hs, continue to monitor progress. Total face to face time:: 15 Mental Status Exam - Mental Status Exam Alert and Oriented to: Time, Place, Person Cognitive Function: Good Patient Appearance: Well Groomed Mood: Sad, Anxious Affect: Appropriate, Mood Congruent Patient Behavior: Appropriate, Cooperative Speech Pattern: Clear, Appropriate Voice Loudness: Normal Thought Process: Intact, Goal Oriented Thought Disorder: Not Present Hallucinations: Denies Suicidal Ideation: Denies Homicidal Ideation: Denies Insight/Judgement: Fair Sleep: Poorly, Difficulty falling asleep Appetite: Fair Muscle strength/Tone: Normal Gait/Station: Normal Psychiatric Treatment Plan - Problem List (1) Substance induced mood disorder Current Visit: No (2) Substance-induced anxiety disorder Current Visit: No (3) Substance-induced sleep disorder Current Visit: No (4) Cirrhosis Current Visit: No (5) GERD (gastroesophageal reflux disease) Current Visit: No (6) HTN (hypertension) Current Visit: No Qualifiers: (7) Nicotine dependence Current Visit: No (8) Alcohol dependence Current Visit: Yes (9) Opioid dependence Current Visit: Yes
[2017-11-18] MEDS: THIAMINE HCL 100 MG TABLET (FP) PO SCH (21:17)
[2017-11-18] MEDS: MIRTAZAPINE 15 MG TABLET (FP) PO SCH (21:18)
[2017-11-18] MEDS: LIDOCAINE PATCH REMOVAL MC SCH (21:18)
[2017-11-19] MEDS: LACTULOSE 20 GM/30 ML UDC (FOR ORAL USE ONLY) PO SCH ×3 (06:12→21:28)
[2017-11-19] MEDS: PRENATAL VITAMINS W/ FOLIC ACID TABLET (FP) PO SCH (10:08)
[2017-11-19] MEDS: amLODIPine BESYLATE 10 MG TABLET (FP) PO SCH (10:08)
[2017-11-19] MEDS: NICOTINE 21 MG/24 HOURS TOPICAL PATCH TD SCH (10:09)
[2017-11-19] MEDS: LIDOCAINE 5% TOPICAL PATCH TP SCH (10:09)
[2017-11-19] MEDS: MIRTAZAPINE 15 MG TABLET (FP) PO SCH (21:27)
[2017-11-19] MEDS: THIAMINE HCL 100 MG TABLET (FP) PO SCH (21:28)
[2017-11-19] MEDS: LIDOCAINE PATCH REMOVAL MC SCH (21:28)
[2017-11-20] MEDS: LACTULOSE 20 GM/30 ML UDC (FOR ORAL USE ONLY) PO SCH ×3 (06:14→21:15)
[2017-11-20] MEDS: LIDOCAINE 5% TOPICAL PATCH TP SCH (09:59)
[2017-11-20] MEDS: PRENATAL VITAMINS W/ FOLIC ACID TABLET (FP) PO SCH (09:59)
[2017-11-20] MEDS: amLODIPine BESYLATE 10 MG TABLET (FP) PO SCH (09:59)
[2017-11-20] MEDS: NICOTINE 21 MG/24 HOURS TOPICAL PATCH TD SCH (09:59)
[2017-11-20] MEDS: THIAMINE HCL 100 MG TABLET (FP) PO SCH (21:15)
[2017-11-20] MEDS: MIRTAZAPINE 15 MG TABLET (FP) PO SCH (21:15)
[2017-11-20] MEDS: LIDOCAINE PATCH REMOVAL MC SCH (21:15)
[2017-11-21] MEDS: LACTULOSE 20 GM/30 ML UDC (FOR ORAL USE ONLY) PO SCH ×3 (06:41→21:04)
[2017-11-21] MEDS: PRENATAL VITAMINS W/ FOLIC ACID TABLET (FP) PO SCH (10:11)
[2017-11-21] MEDS: LIDOCAINE 5% TOPICAL PATCH TP SCH (10:12)
[2017-11-21] MEDS: NICOTINE 21 MG/24 HOURS TOPICAL PATCH TD SCH (10:12)
[2017-11-21] MEDS: amLODIPine BESYLATE 10 MG TABLET (FP) PO SCH (10:13)
[2017-11-21] MEDS: THIAMINE HCL 100 MG TABLET (FP) PO SCH (21:04)
[2017-11-21] MEDS: LIDOCAINE PATCH REMOVAL MC SCH (21:04)
[2017-11-21] MEDS: MIRTAZAPINE 15 MG TABLET (FP) PO SCH (21:04)
[2017-11-21] MEDS: hydrOXYzine PAMOATE 50 MG CAPSULE (FP) PO PRN (21:06)
[2017-11-22] MEDS: LACTULOSE 20 GM/30 ML UDC (FOR ORAL USE ONLY) PO SCH ×3 (06:31→21:20)
[2017-11-22] MEDS: amLODIPine BESYLATE 10 MG TABLET (FP) PO SCH (10:32)
[2017-11-22] MEDS: NICOTINE 21 MG/24 HOURS TOPICAL PATCH TD SCH (10:32)
[2017-11-22] MEDS: PRENATAL VITAMINS W/ FOLIC ACID TABLET (FP) PO SCH (10:32)
[2017-11-22] MEDS: LIDOCAINE 5% TOPICAL PATCH TP SCH (10:33)
[2017-11-22] MEDS: MIRTAZAPINE 15 MG TABLET (FP) PO SCH (21:19)
[2017-11-22] MEDS: THIAMINE HCL 100 MG TABLET (FP) PO SCH (21:19)
[2017-11-22] MEDS: LIDOCAINE PATCH REMOVAL MC SCH (21:20)
[2017-11-22] MEDS: hydrOXYzine PAMOATE 50 MG CAPSULE (FP) PO PRN (21:20)
[2017-11-23] MEDS: LACTULOSE 20 GM/30 ML UDC (FOR ORAL USE ONLY) PO SCH ×3 (06:02→21:14)
[2017-11-23] MEDS: LIDOCAINE 5% TOPICAL PATCH TP SCH (09:20)
[2017-11-23] MEDS: PRENATAL VITAMINS W/ FOLIC ACID TABLET (FP) PO SCH (09:20)
[2017-11-23] MEDS: amLODIPine BESYLATE 10 MG TABLET (FP) PO SCH (09:20)
[2017-11-23] MEDS: NICOTINE 21 MG/24 HOURS TOPICAL PATCH TD SCH (09:23)
[2017-11-23] MEDS: MIRTAZAPINE 15 MG TABLET (FP) PO SCH (21:14)
[2017-11-23] MEDS: LIDOCAINE PATCH REMOVAL MC SCH (21:14)
[2017-11-23] MEDS: THIAMINE HCL 100 MG TABLET (FP) PO SCH (21:14)
[2017-11-23] MEDS: hydrOXYzine PAMOATE 50 MG CAPSULE (FP) PO PRN (21:15)
[2017-11-24] MEDS: LACTULOSE 20 GM/30 ML UDC (FOR ORAL USE ONLY) PO SCH ×3 (06:27→21:04)
[2017-11-24] MEDS: NICOTINE 21 MG/24 HOURS TOPICAL PATCH TD SCH (10:01)
[2017-11-24] MEDS: PRENATAL VITAMINS W/ FOLIC ACID TABLET (FP) PO SCH (10:01)
[2017-11-24] MEDS: amLODIPine BESYLATE 10 MG TABLET (FP) PO SCH (10:01)
[2017-11-24] MEDS: LIDOCAINE 5% TOPICAL PATCH TP SCH (10:03)
--- NOTE | 2017-11-24 10:42 | PN ---
[facility] Progress Note (SOAP) Subjective: c/o arhtiritis joint pains, still having opioid withdrawla sx with elevated bp at times Objective: 11/24/17 10:41 Vital Signs - 24 hr 11/24/17 11/24/17 11/24/17 00:30 03:30 06:46 Temperature 98.3 F Pulse Rate 80 Respiratory 17 16 18 Rate Blood Pressure 126/86 Laboratory Tests 11/17/17 11/17/17 07:30 07:30 Sodium 136 Potassium 4.6 Chloride 99 Carbon Dioxide 31 Anion Gap 6 L BUN 21 H Creatinine 1.0 Creat Clearance w eGFR > 60 Random Glucose 91 D Calcium 8.5 Total Bilirubin 1.7 H AST 82 H ALT 40 D Alkaline Phosphatase 166 H Ammonia 40.02 H Total Protein 8.9 H Albumin 3.3 L labs reviewed Assessment: 11/24/17 10:41 OUD - protoracted withdrawal sx start clonidine 0.1mg bid, neurontin 100mg tid, d/c naprosyn and lildocaine patch asnot taking, start fleseril 5mg tid.
[2017-11-24] MEDS: cloNIDine HCL 0.1 MG TABLET PO SCH ×2 (12:15→21:03)
[2017-11-24] MEDS: CYCLOBENZAPRINE HCL 5 MG TABLET PO SCH ×2 (14:09→21:03)
[2017-11-24] MEDS: GABAPENTIN 100 MG CAPSULE (FP) PO SCH ×2 (14:09→21:03)
--- NOTE | 2017-11-24 15:16 | PN ---
Psychiatric Progress Note Vital Signs: Vital Signs Period Temp Pulse Resp BP Sys/Soler Pulse Ox Last 24 Hr 98.3 F 80-84 16-18 126-149/86-92 Date of Session: 11/24/17 Chief Complaint:: insomnia HPI: Patient addressing alcohol, opioid, nicotine dependence comorbid substance induced anxiety abd sleep disorder. ROS: GERD and HTN medically managed. Current Medications: Active Medications Generic Name Dose Route Start Last Admin Trade Name Freq PRN Reason Stop Dose Admin Al Hydroxide/Mg Hydroxide 30 ml 11/16/17 15:57 11/23/17 09:19 Mylanta Oral Suspension - PO 30 ml Q6H PRN Administration DYSPEPSIA Albuterol Sulfate 2 puff 11/16/17 16:14 Ventolin Hfa Inhaler - IH Q4H PRN SHORT OF BREATH/WHEEZING Amlodipine Besylate 10 mg 11/17/17 10:00 11/24/17 10:01 Norvasc - PO 10 mg DAILY MONTSE Administration Clonidine 0.1 mg 11/24/17 11:10 11/24/17 12:15 Catapres - PO 0.1 mg BID MONTSE Administration Colloidal Oatmeal 1 applic 11/17/17 10:05 11/17/17 21:19 Aveeno Soap - TP 1 applic DAILY PRN Administration HYGEINE Cyclobenzaprine HCl 5 mg 11/24/17 14:00 11/24/17 14:09 Cyclobenzaprine Hcl PO 5 mg TID MONTSE Administration Eucalyptus/Menthol/Phenol/Sorbitol 1 each 11/16/17 15:57 Cepastat Lozenge - MM Q4H PRN SORE THROAT Gabapentin 100 mg 11/24/17 14:00 11/24/17 14:09 Neurontin - PO 100 mg TID MONTSE Administration Guaifenesin 10 ml 11/16/17 15:57 Robitussin Dm - PO Q6H PRN COUGH Hydroxyzine Pamoate 50 mg 11/16/17 15:57 11/23/17 21:15 Vistaril - PO 50 mg Q4H PRN Administration AGITATION Lactic Acid 1 applic 11/17/17 10:05 11/18/17 21:19 Lac-Hydrin 12 TP 1 applic BID PRN Administration DRY SKIN Lactulose 20 gm 11/16/17 22:00 11/24/17 14:09 Cephulac (Oral Use) PO 20 gm TID MONTSE Administration Loperamide HCl 4 mg 11/16/17 15:57 Imodium - PO Q6H PRN DIARRHEA Magnesium Citrate 300 ml 11/16/17 15:57 Citroma - PO Q48H PRN CONSTIPATION Magnesium Hydroxide 30 ml 11/16/17 15:57 Milk Of Magnesia - PO DAILY PRN CONSTIPATION Mirtazapine 30 mg 11/24/17 15:12 Remeron - PO HS MONTSE Nicotine 21 mg 11/16/17 17:00 11/24/17 10:01 Nicoderm Patch - TD 21 mg DAILY MONTSE Administration Nicotine Polacrilex 2 mg 11/16/17 15:57 Nicorette Gum - BUC Q2H PRN NICOTINE REPLACEMENT RX Multivit/Folic Acid/Iron 1 tab 11/17/17 10:00 11/24/17 10:01 Vitamins (Sjr) - PO 1 tab DAILY MONTSE Administration Pseudoephedrine/Triprolidine 1 combo 11/16/17 15:57 Actifed - PO TID PRN NASAL CONGESTION Thiamine HCl 100 mg 11/16/17 22:00 11/23/17 21:14 Vitamin B1 - PO 100 mg HS MONTSE Administration Medication(s) Change(s): increase Remeron 30 mg po hs Current Side Effect: No Lab tests ordered: No Lab tests reviewed: Yes Provider note:: Patient was seen today, he continues to c/o insomnia, reports that Remeron 15 mg po hs not effective, recommended to increase to 30 mg , patient agreed, sleep hygiene discussed with the patient, will continue to monitor progress. Total face to face time:: 15 Mental Status Exam - Mental Status Exam Alert and Oriented to: Time, Place, Person Cognitive Function: Good Patient Appearance: Well Groomed Mood: Sad Affect: Appropriate, Mood Congruent Patient Behavior: Appropriate, Cooperative Speech Pattern: Clear, Appropriate Voice Loudness: Normal Thought Process: Goal Oriented Thought Disorder: Not Present Suicidal Ideation: Denies Homicidal Ideation: Denies Insight/Judgement: Fair Sleep: Poorly, Difficulty falling asleep Appetite: Fair Muscle strength/Tone: Normal Gait/Station: Normal Psychiatric Treatment Plan - Problem List (1) Substance induced mood disorder Current Visit: No (2) Substance-induced anxiety disorder Current Visit: No (3) Substance-induced sleep disorder Current Visit: No (4) Cirrhosis Current Visit: No (5) GERD (gastroesophageal reflux disease) Current Visit: No (6) HTN (hypertension) Current Visit: No Qualifiers: (7) Nicotine dependence Current Visit: No (8) Alcohol dependence Current Visit: Yes (9) Opioid dependence Current Visit: Yes
[2017-11-24] MEDS: THIAMINE HCL 100 MG TABLET (FP) PO SCH (21:03)
[2017-11-24] MEDS: MIRTAZAPINE 30 MG TABLET (FP) PO SCH (21:05)
[2017-11-25] MEDS: GABAPENTIN 100 MG CAPSULE (FP) PO SCH ×3 (06:13→21:25)
[2017-11-25] MEDS: CYCLOBENZAPRINE HCL 5 MG TABLET PO SCH ×3 (06:13→21:25)
[2017-11-25] MEDS: LACTULOSE 20 GM/30 ML UDC (FOR ORAL USE ONLY) PO SCH ×3 (06:13→21:26)
[2017-11-25] MEDS: cloNIDine HCL 0.1 MG TABLET PO SCH (10:06)
[2017-11-25] MEDS: NICOTINE 21 MG/24 HOURS TOPICAL PATCH TD SCH (10:06)
[2017-11-25] MEDS: PRENATAL VITAMINS W/ FOLIC ACID TABLET (FP) PO SCH (10:06)
[2017-11-25] MEDS: amLODIPine BESYLATE 10 MG TABLET (FP) PO SCH (10:07)
--- NOTE | 2017-11-25 12:31 | PN ---
[facility] Progress Note Note: PATIENT DID NOT WANT TO BE ON CLONIDINE,D/C CLONIDINE
[2017-11-25] MEDS: MIRTAZAPINE 30 MG TABLET (FP) PO SCH (21:25)
[2017-11-25] MEDS: THIAMINE HCL 100 MG TABLET (FP) PO SCH (21:25)
[2017-11-25] MEDS: hydrOXYzine PAMOATE 50 MG CAPSULE (FP) PO PRN (21:28)
[2017-11-26] MEDS: GABAPENTIN 100 MG CAPSULE (FP) PO SCH ×2 (06:12→14:15)
[2017-11-26] MEDS: CYCLOBENZAPRINE HCL 5 MG TABLET PO SCH ×3 (06:12→21:18)
[2017-11-26] MEDS: LACTULOSE 20 GM/30 ML UDC (FOR ORAL USE ONLY) PO SCH ×3 (06:12→21:19)
[2017-11-26] MEDS: PRENATAL VITAMINS W/ FOLIC ACID TABLET (FP) PO SCH (10:11)
[2017-11-26] MEDS: amLODIPine BESYLATE 10 MG TABLET (FP) PO SCH (10:11)
[2017-11-26] MEDS: NICOTINE 21 MG/24 HOURS TOPICAL PATCH TD SCH (10:12)
[2017-11-26] MEDS: SELENIUM SULFIDE 2.5% LOTION 4 OZ. TP SCH (15:51)
[2017-11-26] MEDS: THIAMINE HCL 100 MG TABLET (FP) PO SCH (21:19)
[2017-11-26] MEDS: MIRTAZAPINE 30 MG TABLET (FP) PO SCH (21:19)
[2017-11-27] MEDS: LACTULOSE 20 GM/30 ML UDC (FOR ORAL USE ONLY) PO SCH (06:01)
[2017-11-27] MEDS: CYCLOBENZAPRINE HCL 5 MG TABLET PO SCH (06:01)
[2017-11-27] MEDS: SELENIUM SULFIDE 2.5% LOTION 4 OZ. TP SCH (10:18)
[2017-11-27] MEDS: amLODIPine BESYLATE 10 MG TABLET (FP) PO SCH (10:18)
[2017-11-27] MEDS: PRENATAL VITAMINS W/ FOLIC ACID TABLET (FP) PO SCH (10:18)
[2017-11-27] MEDS: NICOTINE 21 MG/24 HOURS TOPICAL PATCH TD SCH (10:18)
--- NOTE | 2017-11-27 13:54 | PN ---
[facility] Progress Note (SOAP) Subjective: c/o dizziness, started on many medications for pain and ammonia level Objective: 11/27/17 13:53 Vital Signs - 24 hr 11/27/17 11/27/17 11/27/17 00:30 03:30 06:57 Temperature 97.6 F Pulse Rate 82 Respiratory 18 20 18 Rate Blood Pressure 154/90 11/27/17 10:00 Temperature Pulse Rate 87 Respiratory Rate Blood Pressure 150/90 Laboratory Tests 11/17/17 11/17/17 07:30 07:30 Sodium 136 Potassium 4.6 Chloride 99 Carbon Dioxide 31 Anion Gap 6 L BUN 21 H Creatinine 1.0 Creat Clearance w eGFR > 60 Random Glucose 91 D Calcium 8.5 Total Bilirubin 1.7 H AST 82 H ALT 40 D Alkaline Phosphatase 166 H Ammonia 40.02 H Total Protein 8.9 H Albumin 3.3 L Assessment: 11/27/17 13:53 d/c lactulaose and other centrally acting sedating medications which could cause dizziness, bp well controlled [facility]
[2017-11-27] MEDS: MIRTAZAPINE 30 MG TABLET (FP) PO SCH (21:11)
[2017-11-27] MEDS: THIAMINE HCL 100 MG TABLET (FP) PO SCH (21:11)
[2017-11-28] MEDS: PRENATAL VITAMINS W/ FOLIC ACID TABLET (FP) PO SCH (09:44)
[2017-11-28] MEDS: amLODIPine BESYLATE 10 MG TABLET (FP) PO SCH (09:44)
[2017-11-28] MEDS: NICOTINE 21 MG/24 HOURS TOPICAL PATCH TD SCH (09:44)
[2017-11-28] MEDS: SELENIUM SULFIDE 2.5% LOTION 4 OZ. TP SCH (09:45)
[2017-11-28] MEDS: MIRTAZAPINE 30 MG TABLET (FP) PO SCH (21:07)
[2017-11-28] MEDS: THIAMINE HCL 100 MG TABLET (FP) PO SCH (21:07)
[2017-11-29 06:55] VITALS: TEMP 98
[2017-11-29] MEDS: PRENATAL VITAMINS W/ FOLIC ACID TABLET (FP) PO SCH (09:52)
[2017-11-29] MEDS: NICOTINE 21 MG/24 HOURS TOPICAL PATCH TD SCH (09:52)
[2017-11-29] MEDS: amLODIPine BESYLATE 10 MG TABLET (FP) PO SCH (09:52)
[2017-11-29] MEDS: SELENIUM SULFIDE 2.5% LOTION 4 OZ. TP SCH (09:53)
[2017-11-29] MEDS: MIRTAZAPINE 30 MG TABLET (FP) PO SCH (21:11)
[2017-11-29] MEDS: THIAMINE HCL 100 MG TABLET (FP) PO SCH (21:11)
[2017-11-30 06:54] VITALS: BP 149/92; PULSE 90
--- NOTE | 2017-11-30 09:29 | PN ---
Psychiatric Progress Note Vital Signs: Vital Signs Period Temp Pulse Resp BP Sys/Soler Pulse Ox Last 24 Hr 98.0 F 90-93 16-18 149-157/85-92 Date of Session: 11/30/17 Chief Complaint:: discharge visit HPI: Patient addressing alcohol, opioid, nicotine dependence comorbid substance induced anxiety and sleep disorder. ROS: GERD and HTN medically managed. Current Medications: Active Medications Generic Name Dose Route Start Last Admin Trade Name Freq PRN Reason Stop Dose Admin Al Hydroxide/Mg Hydroxide 30 ml 11/16/17 15:57 11/23/17 09:19 Mylanta Oral Suspension - PO 30 ml Q6H PRN Administration DYSPEPSIA Amlodipine Besylate 10 mg 11/17/17 10:00 11/29/17 09:52 Norvasc - PO 10 mg DAILY MONTSE Administration Colloidal Oatmeal 1 applic 11/17/17 10:05 11/17/17 21:19 Aveeno Soap - TP 1 applic DAILY PRN Administration HYGEINE Eucalyptus/Menthol/Phenol/Sorbitol 1 each 11/16/17 15:57 Cepastat Lozenge - MM Q4H PRN SORE THROAT Lactic Acid 1 applic 11/17/17 10:05 11/18/17 21:19 Lac-Hydrin 12 TP 1 applic BID PRN Administration DRY SKIN Loperamide HCl 4 mg 11/16/17 15:57 Imodium - PO Q6H PRN DIARRHEA Magnesium Citrate 300 ml 11/16/17 15:57 Citroma - PO Q48H PRN CONSTIPATION Magnesium Hydroxide 30 ml 11/16/17 15:57 Milk Of Magnesia - PO DAILY PRN CONSTIPATION Mirtazapine 30 mg 11/24/17 22:00 11/29/17 21:11 Remeron - PO 30 mg HS MONTSE Administration Nicotine 21 mg 11/16/17 17:00 11/29/17 09:52 Nicoderm Patch - TD 21 mg DAILY MONTSE Administration Nicotine Polacrilex 2 mg 11/16/17 15:57 Nicorette Gum - BUC Q2H PRN NICOTINE REPLACEMENT RX Multivit/Folic Acid/Iron 1 tab 11/17/17 10:00 11/29/17 09:52 Vitamins (Sjr) - PO 1 tab DAILY MONTSE Administration Pseudoephedrine/Triprolidine 1 combo 11/16/17 15:57 Actifed - PO TID PRN NASAL CONGESTION Selenium Sulfide 1 applic 11/26/17 14:45 11/29/17 09:53 Selsun 2.5% Lotion - TP 12/03/17 14:40 1 applic DAILY MONTSE Administration Thiamine HCl 100 mg 11/16/17 22:00 11/29/17 21:11 Vitamin B1 - PO 100 mg HS MONTSE Administration Current Side Effect: No Lab tests ordered: No Lab tests reviewed: Yes Provider note:: Patient has completed today his treatment and met his goals, will continue to address his issues at [facility]. Patient accepts that he is powerless without this treatment, he gained insight into his addiction and made decision he could no longer do drugs and motivated to continue maintain abstinence. He was encouraged to utilize all supports available to prevent relapses. Remeron well tolerated, patient reports he sleeps better and less anxious, script provided for 30 days, patient is stable for discharge today. Total face to face time:: 25 Mental Status Exam - Mental Status Exam Alert and Oriented to: Time, Place, Person Cognitive Function: Good Patient Appearance: Well Groomed Mood: Hopeful Affect: Appropriate, Mood Congruent Patient Behavior: Appropriate, Cooperative Speech Pattern: Clear, Appropriate Voice Loudness: Normal Thought Process: Intact, Goal Oriented Thought Disorder: Not Present Hallucinations: Denies Suicidal Ideation: Denies Homicidal Ideation: Denies Insight/Judgement: Fair Sleep: Fair Appetite: Good Muscle strength/Tone: Normal Gait/Station: Normal Psychiatric Treatment Plan - Problem List (1) Substance induced mood disorder Current Visit: No (2) Substance-induced anxiety disorder Current Visit: No (3) Substance-induced sleep disorder Current Visit: No (4) Cirrhosis Current Visit: No (5) GERD (gastroesophageal reflux disease) Current Visit: No (6) HTN (hypertension) Current Visit: No Qualifiers: (7) Nicotine dependence Current Visit: No (8) Alcohol dependence Current Visit: Yes (9) Opioid dependence Current Visit: Yes
[2017-11-30] MEDS: amLODIPine BESYLATE 10 MG TABLET (FP) PO SCH (09:48)
[2017-11-30] MEDS: SELENIUM SULFIDE 2.5% LOTION 4 OZ. TP SCH (09:48)
[2017-11-30] MEDS: PRENATAL VITAMINS W/ FOLIC ACID TABLET (FP) PO SCH (09:48)
[2017-11-30] MEDS: NICOTINE 21 MG/24 HOURS TOPICAL PATCH TD SCH (09:48)
== END 2017-11-30 10:35 | disposition home or self-care (01) | DRG 772 ==
LOC: YASAS 15:07 → Y5N 15:08
PROVIDERS: ADMIT Psychiatry & Neurology Psychiatry; ATTEND Psychiatry & Neurology Psychiatry
PROC: HZ42ZZZ Group Counseling for Substance Abuse Treatment, Cognitive-Behavioral (ICD-10-PCS; principal; 2017-11-16)
DX: F11.20 Opioid dependence, uncomplicated (principal); F10.20 Alcohol dependence, uncomplicated; F17.210 Nicotine dependence, cigarettes, uncomplicated; F41.9 Anxiety disorder, unspecified; F19.282 Other psychoactive substance dependence with psychoactive substance-induced sleep disorder; F19.280 Other psychoactive substance dependence with psychoactive substance-induced anxiety disorder; F19.24 Other psychoactive substance dependence with psychoactive substance-induced mood disorder; I10 Essential (primary) hypertension; K21.9 Gastro-esophageal reflux disease without esophagitis
CPT/HCPCS: 36415; 80053; 82140; 90732; G0009; J0735

== ENCOUNTER 2020-11-07 15:59 | Inpatient (IN) | payer OTHER ==
[2020-11-07 19:00] VITALS: BMI 22.9
[2020-11-07] MEDS ORDERED: ACETAMINOPHEN 325 MG TABLET (FP) PO PRN ×2 (20:36)
[2020-11-07] MEDS ORDERED: MAG HYDROX/AL HYDROX/SIMETH 30 ML UNIT-DOSE CUP PO PRN (20:36)
[2020-11-07] MEDS ORDERED: METHOCARBAMOL 500 MG TABLET PO PRN (20:36)
[2020-11-07] MEDS ORDERED: IBUPROFEN 400 MG TABLET (FP) PO PRN (20:36)
[2020-11-07] MEDS ORDERED: NICOTINE POLACRILEX 2 MG GUM BUC PRN (20:36)
[2020-11-07] MEDS ORDERED: LORazepam 1 MG TABLET PO PRN (20:36)
[2020-11-07] MEDS ORDERED: MAGNESIUM HYDROX 2400MG/30ML ORAL SUSPENSION 30 ML CUP PO PRN (20:36)
[2020-11-07] MEDS ORDERED: MAGNESIUM CITRATE 300 ML BOTTLE PO PRN (20:36)
[2020-11-07] MEDS ORDERED: ONDANSETRON *ODT* 4 MG TABLET SL PRN (20:36)
[2020-11-07] MEDS ORDERED: BISMUTH SUBSALICYLATE 524 MG/30 ML UD PO PRN (20:36)
[2020-11-07] MEDS ORDERED: MENTHOL/PHENOL 1 EACH UD MM PRN (20:36)
[2020-11-07] MEDS: MELATONIN 5 MG TABLETS PO SCH (22:46)
[2020-11-07] MEDS: THIAMINE HCL 100 MG TABLET (FP) PO SCH (22:46)
[2020-11-07] MEDS: LORazepam 2 MG TABLET PO SCH (22:46)
[2020-11-08] MEDS: LORazepam 2 MG TABLET PO SCH ×4 (05:32→22:44)
[2020-11-08] MEDS: NICOTINE 14 MG/24 HOURS TOPICAL PATCH TD SCH (10:10)
[2020-11-08] MEDS: PRENATAL VITAMINS W/ FOLIC ACID TABLET (FP) PO SCH (10:11)
[2020-11-08] MEDS: amLODIPine BESYLATE 10 MG TABLET (FP) PO SCH (11:41)
[2020-11-08 12:28] LABS: HEMATOCRIT 34.4 % (35.4-49); HEMOGLOBIN 11.7 GM/dL (11.7-16.9); MCH 32.6 pg (25.7-33.7); MCHC 33.9 g/dl (32.0-35.9); MEAN PLT VOLUME 8.9 fl (7.5-11.1); PLATELET COUNT 135 K/MM3 (134-434); RBC 3.58 M/mm3 (4.00-5.60); RDW 15.1 % (11.9-15.9); WHITE BLOOD COUNT 4.4 K/mm3 (4.0-10.0)
[2020-11-08 12:29] LABS: POTASSIUM 3.4 mmol/L (3.5-5.1)
[2020-11-08 12:31] LABS: BLOOD UREA NITROGEN 19.6 mg/dL (7-18)
[2020-11-08 12:33] LABS: CALCIUM 8.3 mg/dL (8.5-10.1)
[2020-11-08 12:35] LABS: ALBUMIN 2.6 g/dl (3.4-5.0)
[2020-11-08 12:37] LABS: CREATININE 1.3 mg/dL (0.55-1.3)
[2020-11-08 12:39] LABS: BILIRUBIN,TOTAL 1.4 mg/dL (0.2-1)
[2020-11-08 12:40] LABS: TOT PROT 6.6 g/dl (6.4-8.2)
[2020-11-08] MEDS ORDERED: POTASSIUM CHLORIDE ORAL LIQUID 20 MEQ/15 ML PO ONE (14:51)
[2020-11-08] MEDS: THIAMINE HCL 100 MG TABLET (FP) PO SCH (22:44)
[2020-11-08] MEDS: MELATONIN 5 MG TABLETS PO SCH (22:44)
[2020-11-08] MEDS: POTASSIUM CHLORIDE ORAL LIQUID 20 MEQ/15 ML PO SCH (22:44)
[2020-11-09] MEDS: LORazepam 1 MG TABLET PO SCH ×4 (05:34→22:35)
[2020-11-09] MEDS: amLODIPine BESYLATE 10 MG TABLET (FP) PO SCH (09:05)
[2020-11-09] MEDS ORDERED: cloNIDine HCL 0.1 MG TABLET PO ONE (09:15)
[2020-11-09] MEDS: NICOTINE 14 MG/24 HOURS TOPICAL PATCH TD SCH (10:25)
[2020-11-09] MEDS: POTASSIUM CHLORIDE ORAL LIQUID 20 MEQ/15 ML PO SCH ×2 (10:25→22:35)
[2020-11-09] MEDS: PRENATAL VITAMINS W/ FOLIC ACID TABLET (FP) PO SCH (10:26)
[2020-11-09 11:17] LABS: POTASSIUM 3.3 mmol/L (3.5-5.1)
[2020-11-09 11:19] LABS: BLOOD UREA NITROGEN 15.2 mg/dL (7-18)
[2020-11-09 11:20] LABS: ALBUMIN 2.9 g/dl (3.4-5.0); CALCIUM 8.6 mg/dL (8.5-10.1)
[2020-11-09 11:26] LABS: BILIRUBIN,TOTAL 1.4 mg/dL (0.2-1); TOT PROT 7.2 g/dl (6.4-8.2)
[2020-11-09] MEDS ORDERED: LISINOPRIL 20 MG TABLET PO ONE (12:42)
[2020-11-09] MEDS: THIAMINE HCL 100 MG TABLET (FP) PO SCH (22:34)
[2020-11-09] MEDS: MELATONIN 5 MG TABLETS PO SCH (22:36)
[2020-11-10] MEDS ORDERED: LORazepam 0.5 MG TABLET PO PRN
[2020-11-10] MEDS: LORazepam 0.5 MG TABLET PO SCH ×4 (05:53→22:15)
[2020-11-10] MEDS: NICOTINE 14 MG/24 HOURS TOPICAL PATCH TD SCH (10:36)
[2020-11-10] MEDS: PRENATAL VITAMINS W/ FOLIC ACID TABLET (FP) PO SCH (10:36)
[2020-11-10] MEDS: LISINOPRIL 20 MG TABLET PO SCH (10:36)
[2020-11-10] MEDS: amLODIPine BESYLATE 10 MG TABLET (FP) PO SCH (10:36)
[2020-11-10] MEDS: MELATONIN 5 MG TABLETS PO SCH (22:15)
[2020-11-10] MEDS: THIAMINE HCL 100 MG TABLET (FP) PO SCH (22:15)
[2020-11-11] MEDS ORDERED: LORazepam 0.5 MG TABLET PO ONE (05:00)
[2020-11-11 09:36] VITALS: BP 143/85; PULSE 82; TEMP 97.3
[2020-11-11] MEDS: PRENATAL VITAMINS W/ FOLIC ACID TABLET (FP) PO SCH (11:14)
[2020-11-11] MEDS: LISINOPRIL 20 MG TABLET PO SCH (11:14)
[2020-11-11] MEDS: amLODIPine BESYLATE 10 MG TABLET (FP) PO SCH (11:14)
[2020-11-11] MEDS: NICOTINE 14 MG/24 HOURS TOPICAL PATCH TD SCH (11:14)
== END 2020-11-11 12:55 | disposition home or self-care (01) | DRG 897 ==
LOC: YASAS 15:59 → Y6N 20:51
PROVIDERS: ADMIT Allergy & Immunology; ATTEND Allergy & Immunology
PROC: HZ2ZZZZ Detoxification Services for Substance Abuse Treatment (ICD-10-PCS; principal; 2020-11-07)
DX: F10.230 Alcohol dependence with withdrawal, uncomplicated (principal); F17.213 Nicotine dependence, cigarettes, with withdrawal; F19.24 Other psychoactive substance dependence with psychoactive substance-induced mood disorder; F32.9 Major depressive disorder, single episode, unspecified; I10 Essential (primary) hypertension; K21.9 Gastro-esophageal reflux disease without esophagitis; K70.30 Alcoholic cirrhosis of liver without ascites; Z56.0 Unemployment, unspecified
CPT/HCPCS: 36415; 80053; 84132; 85027; 86780; 93005; 93010; C9803; J0735; U0003

== ENCOUNTER 2021-01-12 18:56 | Inpatient (IN) | payer OTHER ==
[2021-01-12 19:23] VITALS: BMI 23.2
[2021-01-12] MEDS ORDERED: NICOTINE POLACRILEX 2 MG GUM BUC PRN (22:37)
[2021-01-12] MEDS ORDERED: BISMUTH SUBSALICYLATE 524 MG/30 ML UD PO PRN (22:37)
[2021-01-12] MEDS ORDERED: MAGNESIUM CITRATE 300 ML BOTTLE PO PRN (22:37)
[2021-01-12] MEDS ORDERED: MENTHOL/PHENOL 1 EACH UD MM PRN (22:37)
[2021-01-12] MEDS ORDERED: MAG HYDROX/AL HYDROX/SIMETH 30 ML UNIT-DOSE CUP PO PRN (22:37)
[2021-01-12] MEDS ORDERED: MAGNESIUM HYDROX 2400MG/30ML ORAL SUSPENSION 30 ML CUP PO PRN (22:37)
[2021-01-12] MEDS ORDERED: ACETAMINOPHEN 325 MG TABLET (FP) PO PRN ×2 (22:37)
[2021-01-12] MEDS ORDERED: IBUPROFEN 400 MG TABLET (FP) PO PRN (22:37)
[2021-01-12] MEDS ORDERED: ONDANSETRON *ODT* 4 MG TABLET SL PRN (22:37)
[2021-01-13] MEDS: LORazepam 2 MG TABLET PO SCH ×5 (00:14→22:17)
[2021-01-13] MEDS: METHOCARBAMOL 500 MG TABLET PO PRN (00:23)
[2021-01-13 09:44] LABS: ALBUMIN 2.6 g/dl (3.4-5.0)
[2021-01-13 09:46] LABS: BLOOD UREA NITROGEN 15.7 mg/dL (7-18); CALCIUM 8.4 mg/dL (8.5-10.1)
[2021-01-13 09:50] LABS: BILIRUBIN,TOTAL 0.8 mg/dL (0.2-1); CREATININE 1.3 mg/dL (0.55-1.3); TOT PROT 6.4 g/dl (6.4-8.2)
[2021-01-13 09:55] LABS: HEMATOCRIT 33.4 % (35.4-49); HEMOGLOBIN 11.3 GM/dL (11.7-16.9); MCH 31.1 pg (25.7-33.7); MCHC 33.7 g/dl (32.0-35.9); MEAN CELL VOLUME 92.2 fl (80-96); MEAN PLT VOLUME 9.6 fl (7.5-11.1); PLATELET COUNT 146 K/MM3 (134-434); RBC 3.63 M/mm3 (4.00-5.60); RDW 14.2 % (11.9-15.9); WHITE BLOOD COUNT 4.7 K/mm3 (4.0-10.0)
[2021-01-13] MEDS: PRENATAL VITAMINS W/ FOLIC ACID TABLET (FP) PO SCH (10:35)
[2021-01-13] MEDS: NICOTINE 14 MG/24 HOURS TOPICAL PATCH TD SCH (10:35)
[2021-01-13] MEDS: LORazepam 1 MG TABLET PO PRN (14:09)
[2021-01-13] MEDS: AMMONIUM LACTATE 12% LOTION 225 GM BOTTLE TP SCH ×2 (15:12→22:18)
[2021-01-13] MEDS ORDERED: amLODIPine BESYLATE 10 MG TABLET (FP) PO ONE (15:19)
[2021-01-13] MEDS: THIAMINE HCL 100 MG TABLET (FP) PO SCH (22:17)
[2021-01-13] MEDS: MELATONIN 5 MG TABLETS PO SCH (22:18)
[2021-01-14] MEDS: LORazepam 1 MG TABLET PO SCH ×4 (05:31→22:53)
[2021-01-14] MEDS: LISINOPRIL 20 MG TABLET PO SCH (10:11)
[2021-01-14] MEDS: amLODIPine BESYLATE 10 MG TABLET (FP) PO SCH (10:11)
[2021-01-14] MEDS: PRENATAL VITAMINS W/ FOLIC ACID TABLET (FP) PO SCH (10:11)
[2021-01-14] MEDS: AMMONIUM LACTATE 12% LOTION 225 GM BOTTLE TP SCH ×2 (10:14→22:53)
[2021-01-14] MEDS: NICOTINE 14 MG/24 HOURS TOPICAL PATCH TD SCH (10:14)
[2021-01-14] MEDS: LORazepam 1 MG TABLET PO PRN (13:22)
[2021-01-14] MEDS: MELATONIN 5 MG TABLETS PO SCH (22:53)
[2021-01-14] MEDS: THIAMINE HCL 100 MG TABLET (FP) PO SCH (22:53)
[2021-01-15] MEDS ORDERED: LORazepam 0.5 MG TABLET PO PRN
[2021-01-15] MEDS: LORazepam 0.5 MG TABLET PO SCH ×4 (05:19→22:01)
[2021-01-15 10:07] LABS: SARS-CoV-2 NAA Not Detected (Not Detected)
[2021-01-15] MEDS: amLODIPine BESYLATE 10 MG TABLET (FP) PO SCH (12:27)
[2021-01-15] MEDS: PRENATAL VITAMINS W/ FOLIC ACID TABLET (FP) PO SCH (13:26)
[2021-01-15] MEDS: LISINOPRIL 20 MG TABLET PO SCH (13:27)
[2021-01-15] MEDS: NICOTINE 14 MG/24 HOURS TOPICAL PATCH TD SCH (13:30)
[2021-01-15] MEDS: AMMONIUM LACTATE 12% LOTION 225 GM BOTTLE TP SCH ×2 (13:31→22:00)
[2021-01-15] MEDS: MELATONIN 5 MG TABLETS PO SCH (22:01)
[2021-01-15] MEDS: THIAMINE HCL 100 MG TABLET (FP) PO SCH (22:01)
[2021-01-16] MEDS ORDERED: LORazepam 0.5 MG TABLET PO ONE (05:00)
[2021-01-16] MEDS: amLODIPine BESYLATE 10 MG TABLET (FP) PO SCH (10:18)
[2021-01-16] MEDS: PRENATAL VITAMINS W/ FOLIC ACID TABLET (FP) PO SCH (10:18)
[2021-01-16] MEDS: LISINOPRIL 20 MG TABLET PO SCH (10:18)
[2021-01-16] MEDS: NICOTINE 14 MG/24 HOURS TOPICAL PATCH TD SCH (10:19)
[2021-01-16] MEDS: AMMONIUM LACTATE 12% LOTION 225 GM BOTTLE TP SCH ×2 (10:19→22:35)
[2021-01-16] MEDS: MELATONIN 5 MG TABLETS PO SCH (22:16)
[2021-01-16] MEDS: THIAMINE HCL 100 MG TABLET (FP) PO SCH (22:16)
[2021-01-16] MEDS: METHOCARBAMOL 500 MG TABLET PO PRN (22:16)
[2021-01-17 09:47] VITALS: BP 146/81; PULSE 78; TEMP 96.6
[2021-01-17] MEDS: NICOTINE 14 MG/24 HOURS TOPICAL PATCH TD SCH (10:06)
[2021-01-17] MEDS: PRENATAL VITAMINS W/ FOLIC ACID TABLET (FP) PO SCH (10:06)
[2021-01-17] MEDS: amLODIPine BESYLATE 10 MG TABLET (FP) PO SCH (10:07)
[2021-01-17] MEDS: LISINOPRIL 20 MG TABLET PO SCH (10:07)
[2021-01-17] MEDS: AMMONIUM LACTATE 12% LOTION 225 GM BOTTLE TP SCH (10:08)
== END 2021-01-17 11:45 | disposition other institution (70) | DRG 897 ==
LOC: YASAS 18:56 → Y3N 22:55
PROVIDERS: ADMIT Allergy & Immunology; ATTEND Allergy & Immunology
PROC: HZ2ZZZZ Detoxification Services for Substance Abuse Treatment (ICD-10-PCS; principal; 2021-01-12)
DX: F10.230 Alcohol dependence with withdrawal, uncomplicated (principal); F17.210 Nicotine dependence, cigarettes, uncomplicated; E88.09 Other disorders of plasma-protein metabolism, not elsewhere classified; D64.9 Anemia, unspecified; I10 Essential (primary) hypertension; K70.30 Alcoholic cirrhosis of liver without ascites; K21.9 Gastro-esophageal reflux disease without esophagitis; J44.9 Chronic obstructive pulmonary disease, unspecified; Z56.0 Unemployment, unspecified; Z59.0 Homelessness
CPT/HCPCS: 36415; 80053; 85027; 86780; C9803; U0003; U0005

== ENCOUNTER 2022-11-13 13:42 | Observation (INO) | payer OTHER ==
[2022-11-13 13:57] VITALS: BMI 31.4
[2022-11-13 15:11] LABS: BASO % 0.6 % (0-2.0); EOS % 2.7 % (0-4.5); HEMATOCRIT 37.6 % (35.4-49); HEMOGLOBIN 12.6 GM/dL (11.7-16.9); LYMPH % 8.8 % (8-40); MCH 31.9 pg (25.7-33.7); MCHC 33.5 g/dl (32.0-35.9); MEAN CELL VOLUME 95.3 fl (80-96); MEAN PLT VOLUME 8.4 fl (7.5-11.1); NEUT % 77.9 % (42.8-82.8); PLATELET COUNT 258 10^3/uL (134-434); RBC 3.94 M/mm3 (4.00-5.60); RDW 15.8 % (11.9-15.9); WHITE BLOOD COUNT 7.2 K/mm3 (4.0-10.0)
[2022-11-13 15:28] LABS: ALBUMIN 3.4 g/dl (3.4-5.0); CALCIUM 9.3 mg/dL (8.5-10.1)
[2022-11-13 15:31] LABS: CREATININE 2.5 mg/dL (0.55-1.3)
[2022-11-13 15:33] LABS: BILIRUBIN,TOTAL 0.7 mg/dL (0.2-1); TOT PROT 7.5 g/dl (6.4-8.2)
[2022-11-13] MEDS ORDERED: SODIUM CHLORIDE 0.9% 500 ML INFUS.BAG IV ONE (15:37)
[2022-11-13] MEDS ORDERED: SODIUM CHLORIDE 1,000 ML IV STA (16:12)
[2022-11-13 16:27] LABS: PH,URINE 5.5 (5.0-8.0); URINE APPEARANCE CLEAR; URINE BILIRUBIN NEGATIVE (NEGATIVE); URINE COLOR YELLOW; URINE GLUCOSE (UA) NEGATIVE (NEGATIVE); URINE KETONE NEGATIVE (NEGATIVE); URINE LEUK ESTERASE NEGATIVE (NEGATIVE); URINE NITRITE NEGATIVE (NEGATIVE); URINE PROTEIN NEGATIVE (NEGATIVE); URINE UROBILINOGEN 0.2 mg/dL (0.2-1.0)
[2022-11-13 16:34] LABS: PHENCYCLIDINE,URINE NEGATIVE (NEGATIVE); URINE BENZODIAZEPINES NEGATIVE (NEGATIVE)
[2022-11-13 16:35] LABS: METHADONE, UR NEGATIVE (NEGATIVE); URINE AMPHETAMINES NEGATIVE (NEGATIVE)
[2022-11-13] MEDS ORDERED: LACTATED RINGERS SOLUTION 1,000 ML IV SCH (16:45)
[2022-11-13 16:50] LABS: COCAINE, UR NEGATIVE (NEGATIVE); OPIATES, URI POSITIVE (NEGATIVE); URINE BARBITURATES NEGATIVE (NEGATIVE)
[2022-11-13] MEDS ORDERED: HEPARIN NA (PORCINE) 5,000 UNITS/ML 1ML VIAL ONE (22:22)
[2022-11-13] MEDS ORDERED: MIRTAZAPINE 15 MG TABLET (FP) ONE (22:22)
[2022-11-13] MEDS: MIRTAZAPINE 15 MG TABLET (FP) PO SCH (22:27)
[2022-11-13] MEDS: HEPARIN NA (PORCINE) 5,000 UNITS/ML 1ML VIAL SQ SCH (22:27)
[2022-11-14] VITALS: RESP 18
[2022-11-14] MEDS: LEVOTHYROXINE NA 25 MCG TABLET (FP) PO SCH (06:24)
[2022-11-14] MEDS: HEPARIN NA (PORCINE) 5,000 UNITS/ML 1ML VIAL SQ SCH ×3 (06:24→21:36)
[2022-11-14] MEDS ORDERED: LACTATED RINGERS SOLUTION 1,000 ML IV SCH ×2 (09:07→13:24)
[2022-11-14] MEDS: ALLOPURINOL 100 MG TABLET (FP) PO SCH (09:27)
[2022-11-14] MEDS: LACTULOSE 20 GM/30 ML UDC (FOR ORAL USE ONLY) PO SCH (09:28)
[2022-11-14] MEDS: amLODIPine BESYLATE 10 MG TABLET (FP) PO SCH (09:28)
[2022-11-14] MEDS ORDERED: LISINOPRIL 20 MG TABLET PO SCH (10:00)
[2022-11-14] MEDS ORDERED: FUROSEMIDE 20 MG TABLET (FP) PO SCH (10:00)
[2022-11-14 10:01] LABS: CALCIUM 8.4 mg/dL (8.5-10.1)
[2022-11-14 10:02] LABS: BLOOD UREA NITROGEN 37.5 mg/dL (7-18)
[2022-11-14 10:05] LABS: CREATININE 1.9 mg/dL (0.55-1.3)
[2022-11-14 11:33] LABS: URINE APPEARANCE CLEAR; URINE BILIRUBIN NEGATIVE (NEGATIVE); URINE COLOR YELLOW; URINE GLUCOSE (UA) NEGATIVE (NEGATIVE); URINE KETONE NEGATIVE (NEGATIVE); URINE LEUK ESTERASE NEGATIVE (NEGATIVE); URINE NITRITE NEGATIVE (NEGATIVE); URINE PROTEIN NEGATIVE (NEGATIVE)
[2022-11-14] MEDS: MIRTAZAPINE 15 MG TABLET (FP) PO SCH (21:36)
[2022-11-15] MEDS: LEVOTHYROXINE NA 25 MCG TABLET (FP) PO SCH (06:04)
[2022-11-15] MEDS: HEPARIN NA (PORCINE) 5,000 UNITS/ML 1ML VIAL SQ SCH ×2 (06:04→13:54)
[2022-11-15 09:56] LABS: HEMOGLOBIN 12.3 GM/dL (11.7-16.9); MCH 31.6 pg (25.7-33.7); MCHC 33.2 g/dl (32.0-35.9); MEAN CELL VOLUME 95.3 fl (80-96); MEAN PLT VOLUME 8.4 fl (7.5-11.1); PLATELET COUNT 216 10^3/uL (134-434); RBC 3.88 M/mm3 (4.00-5.60); RDW 15.5 % (11.9-15.9); WHITE BLOOD COUNT 6.7 K/mm3 (4.0-10.0)
[2022-11-15 10:15] LABS: CALCIUM 8.7 mg/dL (8.5-10.1)
[2022-11-15 10:16] LABS: ALBUMIN 3.2 g/dl (3.4-5.0); BLOOD UREA NITROGEN 28.1 mg/dL (7-18); MAGNESIUM 1.9 mg/dL (1.8-2.4)
[2022-11-15 10:19] LABS: CREATININE 1.7 mg/dL (0.55-1.3); PHOSPHOROUS 3.5 mg/dL (2.5-4.9)
[2022-11-15 10:20] LABS: BILIRUBIN,TOTAL 0.9 mg/dL (0.2-1)
[2022-11-15] MEDS: ALLOPURINOL 100 MG TABLET (FP) PO SCH (10:29)
[2022-11-15] MEDS: amLODIPine BESYLATE 10 MG TABLET (FP) PO SCH (10:29)
[2022-11-15] MEDS: LACTULOSE 20 GM/30 ML UDC (FOR ORAL USE ONLY) PO SCH (10:29)
[2022-11-15] MEDS ORDERED: SODIUM CHLORIDE 1,000 ML IV SCH (15:30)
[2022-11-15] MEDS: LORazepam 0.5 MG TABLET PO PRN ×2 (16:02→20:12)
[2022-11-15] MEDS: APIXABAN 2.5 MG TABLET PO SCH ×2 (20:13→22:00)
[2022-11-15] MEDS: MIRTAZAPINE 15 MG TABLET (FP) PO SCH (21:40)
[2022-11-16] MEDS: LEVOTHYROXINE NA 25 MCG TABLET (FP) PO SCH (06:25)
[2022-11-16] MEDS: ALLOPURINOL 100 MG TABLET (FP) PO SCH (10:13)
[2022-11-16] MEDS: amLODIPine BESYLATE 10 MG TABLET (FP) PO SCH (10:13)
[2022-11-16] MEDS: LACTULOSE 20 GM/30 ML UDC (FOR ORAL USE ONLY) PO SCH (10:13)
[2022-11-16 10:39] LABS: BASO % 0.5 % (0-2.0); EOS % 11.7 % (0-4.5); HEMATOCRIT 35.4 % (35.4-49); HEMOGLOBIN 11.7 GM/dL (11.7-16.9); LYMPH % 20.4 % (8-40); MCH 31.3 pg (25.7-33.7); MCHC 32.9 g/dl (32.0-35.9); MEAN CELL VOLUME 95.2 fl (80-96); MEAN PLT VOLUME 8.5 fl (7.5-11.1); MONO % 10.8 % (3.8-10.2); NEUT % 56.6 % (42.8-82.8); PLATELET COUNT 197 10^3/uL (134-434); RBC 3.72 M/mm3 (4.00-5.60); RDW 15.7 % (11.9-15.9); WHITE BLOOD COUNT 5.9 K/mm3 (4.0-10.0)
[2022-11-16 10:45] LABS: INR 1.22 (0.83-1.09); PROTHROMBIN TIME (PATIENT) 14.1 SEC (9.7-13.0)
[2022-11-16 10:52] LABS: ALBUMIN 2.8 g/dl (3.4-5.0); BLOOD UREA NITROGEN 24.4 mg/dL (7-18); CALCIUM 8.6 mg/dL (8.5-10.1); MAGNESIUM 1.8 mg/dL (1.8-2.4)
[2022-11-16 10:55] LABS: CREATININE 1.7 mg/dL (0.55-1.3); PHOSPHOROUS 3.7 mg/dL (2.5-4.9)
[2022-11-16 10:57] LABS: BILIRUBIN,TOTAL 0.7 mg/dL (0.2-1); TOT PROT 6.5 g/dl (6.4-8.2)
[2022-11-16 13:57] VITALS: BP 114/54; PULSE 58; TEMP 98.7
== END 2022-11-16 14:56 | disposition home or self-care (01) ==
LOC: JER 13:42 → JERBED 16:44 → J5S 23:05
PROVIDERS: ADMIT Internal Medicine; ATTEND Internal Medicine
PROC: 3E023GC Introduction of Other Therapeutic Substance into Muscle, Percutaneous Approach (ICD-10-PCS; principal; 2022-11-13)
PROC: 3E0337Z Introduction of Electrolytic and Water Balance Substance into Peripheral Vein, Percutaneous Approach (ICD-10-PCS; 2022-11-13)
DX: N17.9 Acute kidney failure, unspecified (principal); F11.90 Opioid use, unspecified, uncomplicated; F10.99 Alcohol use, unspecified with unspecified alcohol-induced disorder; R74.01 Elevation of levels of liver transaminase levels; F32.A Depression, unspecified; I10 Essential (primary) hypertension; U07.1 COVID-19; K21.9 Gastro-esophageal reflux disease without esophagitis
CPT/HCPCS: 0241U-QW; 36415; 71046-TC-FY; 74176-TC; 76705-TC; 76775-TC; 80048; 80053; 80307; 81003; 82570; 83735; 83935; 84100; 84300; 84484; 85025; 85027; 85610; 93005; 93010; 96360; 96361; 96372; 99285-25; G0378; J1644

== ENCOUNTER 2022-11-16 17:22 | Observation (INO) | payer OTHER ==
[2022-11-16] MEDS ORDERED: DEXAMETHASONE SOD PHOSPHATE 10 MG/1 ML VIAL ONE (19:15)
[2022-11-16] MEDS: HEPARIN NA (PORCINE) 5,000 UNITS/ML 1ML VIAL SQ SCH (23:00)
[2022-11-16] MEDS: MIRTAZAPINE 15 MG TABLET (FP) PO SCH (23:00)
[2022-11-16] MEDS ORDERED: MIRTAZAPINE 15 MG TABLET (FP) ONE (23:04)
[2022-11-16] MEDS ORDERED: HEPARIN NA (PORCINE) 5,000 UNITS/ML 1ML VIAL ONE (23:04)
[2022-11-17 00:30] VITALS: BMI 25.5
[2022-11-17] MEDS: HEPARIN NA (PORCINE) 5,000 UNITS/ML 1ML VIAL SQ SCH ×3 (06:41→21:07)
[2022-11-17] MEDS: LEVOTHYROXINE NA 25 MCG TABLET (FP) PO SCH (06:41)
[2022-11-17] MEDS: amLODIPine BESYLATE 10 MG TABLET (FP) PO SCH (10:12)
[2022-11-17] MEDS: LACTULOSE 20 GM/30 ML UDC (FOR ORAL USE ONLY) PO SCH (10:12)
[2022-11-17] MEDS: ALLOPURINOL 100 MG TABLET (FP) PO SCH (10:12)
[2022-11-17] MEDS: MIRTAZAPINE 15 MG TABLET (FP) PO SCH (21:08)
[2022-11-18] MEDS: HEPARIN NA (PORCINE) 5,000 UNITS/ML 1ML VIAL SQ SCH ×2 (05:44→14:58)
[2022-11-18] MEDS: LEVOTHYROXINE NA 25 MCG TABLET (FP) PO SCH (06:06)
[2022-11-18 09:36] LABS: CALCIUM 8.9 mg/dL (8.5-10.1)
[2022-11-18 09:37] LABS: BLOOD UREA NITROGEN 20.3 mg/dL (7-18)
[2022-11-18] MEDS: LACTULOSE 20 GM/30 ML UDC (FOR ORAL USE ONLY) PO SCH (09:38)
[2022-11-18] MEDS: ALLOPURINOL 100 MG TABLET (FP) PO SCH (09:39)
[2022-11-18] MEDS: amLODIPine BESYLATE 10 MG TABLET (FP) PO SCH (09:39)
[2022-11-18 09:40] LABS: BILIRUBIN,TOTAL 1.1 mg/dL (0.2-1); CREATININE 1.5 mg/dL (0.55-1.3)
[2022-11-18 09:41] LABS: TOT PROT 6.7 g/dl (6.4-8.2)
[2022-11-18 17:45] VITALS: BP 136/74; PULSE 76; RESP 18; TEMP 98
== END 2022-11-18 15:03 ==
LOC: JER 17:22 → JERBED 21:17 → J8W 23:33
PROVIDERS: ADMIT Internal Medicine; ATTEND Internal Medicine
PROC: 3E023GC Introduction of Other Therapeutic Substance into Muscle, Percutaneous Approach (ICD-10-PCS; principal; 2022-11-16)
DX: R42 Dizziness and giddiness (principal); U07.1 COVID-19; I10 Essential (primary) hypertension; K21.9 Gastro-esophageal reflux disease without esophagitis; M10.9 Gout, unspecified; E03.9 Hypothyroidism, unspecified; F32.A Depression, unspecified; F10.99 Alcohol use, unspecified with unspecified alcohol-induced disorder; F11.90 Opioid use, unspecified, uncomplicated
CPT/HCPCS: 36415; 80053; 96372; 97116-GP; 97161-GP; 99285-25; G0378; J1644